=== PATIENT | female | born 1980 | race Two or more races ===

== ENCOUNTER 2021-01-25 08:27 | Outpatient (AMBR) | payer MEDICAID, SELFPAY ==
--- NOTE | 2021-01-25 09:45 | PTNOTE_ITS ---
PT OP Initial Eval Patient Information Visit Reasons: left knee pain Medical Diagnosis: M25.562 Treatment Dx #1: L knee pain Start of Care: 01/25/21 Date of Onset: 3 months ago Initial Assessment Subjective Pt is 40 yr old sami speaking female who reports L knee pain x3 months that was intense pain 9/10 prior to recent extraction of knee effusion. Pt is ambulating with FWW which she started using when the L knee started hurting and is ambulating limited distances limited by knee pain PMH: RA, DM, CVA with L ankle drop foot. Imaging: x-ray of L knee in EMR advanced OA tricompartmental Pt goal: to see if pain can decrease Objective L knee AROM: Flexion: 100 deg Extension: -5 deg Strength: 3+/5 quads and HS Gait: antalgic Squat: unable Assessment Pt presents with limited L knee ROM, strength and function with gait consistent with X-ray results that show advanced OA. After reviewing X-ray imaging there is bone on bone of the knee which may limit progress with therapy goals. Pt requires skilled therapy in order to trial TENs treatment and see if she can get any pain relief and she has poor/fair rehab potential. 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 Ind with HEP 2. Trial treatment of TENs to reduce pain 3. Pt will be able to ride the recumbent bike x5' Treatment Plan 1. Manual therapy 2. Therex 3. Modalities as indicated, moist heat, ice, estim Frequency and Duration 2x a week for 6 weeks Certification Dates: 01/25/21 to 04/26/21 Office Procedures PT Treatments PT Date of Service: 01/25/21 OP PT Eval Mod Complex 30 minutes: Yes
--- NOTE | 2021-06-28 10:02 | PT.ODS1RPT ---
PT OP Progress/Discharge Note Date of Service: 06/28/21 Progress Note/DC Note Progress Note/Discharge Note: DC Note Patient Information Visit Reasons: left knee pain Service Continue Service or Discharge: Discharge Discharge Date: 06/28/21 Status Assessment: Pt attended the initial evaluation and no showed first Rx visit and never returned or called to schedule a follow-up appointment within the past 30 days. Pt?s attendance is not consistent enough to make progress with goals. Pt will be D/C'd according to non-compliance with attendance policy. Plan: D/C Office Procedures PT Treatments PT Date of Service: 01/25/21 OP PT Eval Mod Complex 30 minutes: Yes
== END 2021-02-21 23:59 | disposition home or self-care (01) ==
PROVIDERS: PCP Physician Assistant; Referring Provider Physician Assistant; Visit Provider Nurse Practitioner Family
DX: M25.562 Pain in left knee (principal); I69.398 Other sequelae of cerebral infarction; E11.9 Type 2 diabetes mellitus without complications
CPT/HCPCS: 97162

== ENCOUNTER 2024-02-07 13:35 | Outpatient (AMB) | payer MEDICAID, SELFPAY ==
--- NOTE | 2024-02-07 14:55 | PD.ORTHCLVIS ---
Vital signs 02/07/24 14:57 Height 1.52 m Height Method Stated Weight 68.577 kg Weight Measurement Method Standing Scale BMI 29.7 BP 125/85 H Blood Pressure Source Automatic Cuff Blood Pressure Location Right Upper Arm Position Sitting Respiration 18 Pulse 79 Pulse Source Monitor Temp 95.8 F L Temp Source Temporal Artery Scan Pulse Oximetry (%) 98 Oxygen Delivery Method Room Air Med/Allergies Allergies & Medications Allergies No Known Allergies Allergy (Verified 02/07/24 14:57) Medication Reconciliation hydrocodone 5 mg-acetaminophen 325 mg tablet ([place]) 1 tab PO AC PRN Pain 05/08/19 [History Confirmed 02/07/24] acetaminophen 500 mg tablet 1,000 mg PO TID pain 11/01/23 [History Confirmed 02/07/24] acetaminophen 500 mg tablet (Acetaminophen Extra Strength) 1,000 mg (2 x 500 mg) PO Q6H PRN pain #90 tabs 11/06/23 [Rx Confirmed 02/07/24] aspirin 81 mg tablet,delayed release 81 mg PO BID #60 tabs 11/06/23 [Rx Confirmed 02/07/24] doxycycline hyclate 100 mg tablet 100 mg PO BID #14 tabs 11/06/23 [Rx Confirmed 02/07/24] gabapentin 300 mg capsule 300 mg PO .qhs #30 caps 11/06/23 [Rx Confirmed 02/07/24] oxycodone 5 mg tablet 5 mg PO Q6H PRN pain #28 tabs 11/06/23 [Rx Confirmed 02/07/24] sennosides 8.6 mg-docusate sodium 50 mg tablet (Senna-S) 1 tab-cap PO QDAY #30 tabs 11/06/23 [Rx Confirmed 02/07/24] Subjective Visit Visit for: follow up visit Immunization / Flu Flu Vaccine in the Last 12 Months: No Flu Vaccine Exclusion Criteria: No Exclusion Criteria History of Present Illness Chief complaint: POST OP Date of injury / onset of symptoms: 11/06/23 Date of 1st surgery (if applicable): 11/06/23 Patient is 12 weeks out from surgery and is doing wonderfully. She is very happy with her knee. Personal History Occupation: UNEMPLOYED Pain Pain level (0-10): 3 Pain duration: COMES 7 GOES Pain location: inside (medial) and anterior Pain quality: dull and aching Pain timing: increases with activity Associated signs & symptoms: none Ambulatory data Ambulatory device: walker Treatments Improvement with previous injections: No Improvement with PT: No Improvement with NSAIDS: n/a Review of Systems Review of Systems: All systems negative unless otherwise noted in HPI. Exam Exam Patient is in no acute distress and is cooperative with the examination today. Patient has a normal mood and affect. Breathing is nonlabored. In no respiratory distress. Bilateral extremities were evaluated and demonstrates sensation intact to light touch. Palpable pedal pulses are present. No significant edema is present. Left knee incision is clean dry intact. There is no drainage. We removed the remaining sutures. Range of motion is 0 to 100 degrees. Knee feels stable to varus and valgus stress as well as AP translation Assessment and Plan Problem List (1) Status post total left knee replacement: Status: Acute Plan: Patient is doing well after complex primary total knee replacement for rheumatoid arthritis. She is doing very well after surgery. She would like to get her right knee replacement done at some point. She would like to continue to recover before she would do this. We would need to figure out the timing of her medication again. This would be a very complex total knee replacement just like the last 1. We would need a CT scan given the amount of bony deformity. (2) Rheumatoid arthritis involving both knees: Status: Acute Office Procedures GNS Level of Care Nursing/Assessment Patient Status: Established Patient Nursing Assessment/Reassesment: Medication Reconciliation, Update PMH in EMR and Vital Signs Coordination of Care: Complex Care and Chronic Disease 1-5, Education Complex Pt/Fam, Consent,records obtained, informed consent, 1 Ins Authorization, Results/Orders obtained and Staff clarify orders Special Needs: Language special needs Established Patient Charge Established Patient Point Assignment: 110 Established Patient Point Charge: EP Level 3 (80-115) Past Medical History Past Medical History Have you ever been diagnosed with any of the following: Neurological Problems Cerebrovascular Accident (CVA): Yes (5 YEARS AGO) Seizures: No Cardiology Problems Congestive Heart Failure: No Respiratory Problems Chronic Obstructive Pulmonary Disease (COPD): No Asthma: No Tuberculosis: Yes (POSITIVE TB TEST CHILD- TREATMENT COMPLETED) Smoking: No Smoking Exposure: No Stomache/Intestinal Problems Hepatitis: No Genital/Urinary Problems Renal Disease: No Reproductive Problems Previous Pregnancies: Yes (X4) Musculoskeletal Problems Rheumatoid Arthritis: Yes (TAKES PREDNISONE) Endocrine Problems Diabetes Mellitus Type 1: No Diabetes Mellitus Type 2: Yes (CONTROLLED WITH DIET. NO MEDS) Blood Problems Sickle Cell Disease: No Other Problems Falls: No Blood Transfusions: No Blood Transfusion Reaction: No Anesthesia Reactions: No MRSA: No Chicken Pox: No (UNKNOWN) Cancer: No Surgical History Total Knee Replacement: Yes
[2024-02-07 14:57] VITALS: BP 125/85; PULSE 79; RESP 18; TEMP 35.4; O2SAT 98; BMI 29.7
== END 2024-02-07 15:02 | disposition home or self-care (01) ==
LOC: HODSRG 13:35
PROVIDERS: PCP Physician Assistant; Referring Provider Physician Assistant; Supervising Provider Orthopaedic Surgery Adult Reconstructive Orthopaedic Surgery; Visit Provider Orthopaedic Surgery Adult Reconstructive Orthopaedic Surgery
DX: Z96.652 Presence of left artificial knee joint (principal); M06.862 Other specified rheumatoid arthritis, left knee; M06.861 Other specified rheumatoid arthritis, right knee; Z86.73 Personal history of transient ischemic attack (TIA), and cerebral infarction without residual deficits
CPT/HCPCS: 99213; G0463

== ENCOUNTER 2024-04-10 13:28 | Outpatient (AMB) | payer MEDICAID, SELFPAY ==
--- NOTE | 2024-04-10 13:56 | ORTHONT_ITS ---
Vital signs 04/10/24 13:57 Height 1.52 m Height Method Stated Weight 69.144 kg Weight Measurement Method Standing Scale BMI 29.9 BP 114/77 Blood Pressure Source Automatic Cuff Blood Pressure Location Left Upper Arm Position Sitting Respiration 18 Pulse 75 Pulse Source Monitor Temp 96.9 F Temp Source Temporal Artery Scan Pulse Oximetry (%) 95 Oxygen Delivery Method Room Air Med/Allergies Allergies & Medications Allergies No Known Allergies Allergy (Verified 04/10/24 13:57) Exam Exam Patient is in no acute distress and is cooperative with the examination today. Patient has a normal mood and affect. Breathing is nonlabored. In no respiratory distress. Bilateral extremities were evaluated and demonstrates sensation intact to light touch. Palpable pedal pulses are present. No significant edema is present. Left knee incision is clean dry intact. There is no drainage. We removed the remaining sutures. Range of motion is 0 to 100 degrees. Knee feels stable to varus and valgus stress as well as AP translation Assessment and Plan Problem List (1) Status post total left knee replacement: Status: Acute Plan: Patient is doing well after complex primary total knee replacement for rheumatoid arthritis. She is doing very well after surgery. She would like to get her right knee replacement done at some point. She would like to continue to recover before she would do this. We would need to figure out the timing of her medication again. This would be a very complex total knee replacement just like the last one. We would need a CT scan given the amount of bony deformity. The nature and purpose of the total knee replacement, alternative method(s) of treatment, the material risks involved, and the possibility of complications were fully explained to the patient. The patient does NOT have any of the following contraindications to TKA: - Active infection of the knee joint, OR - Active systemic bacteremia, OR - Active skin infection or open wound at surgical site, OR - Neuropathic arthritis, OR - Severe, rapidly progressive neurological disease, OR - Severe medical condition that makes risks of surgery outweigh the potential benefit The patient was told the most common risks and complications associated with a total knee replacement include, but are not limited to: blood clots in the leg, fatal pulmonary embolism, dislocation of the prosthesis, intraoperative and postoperative fractures of the femur or tibia, infection, failure of the prosthesis or grafting materials, complications from anesthesia, reactions to blood transfusions, postoperative leg length inequality, instability of the knee replacement, nerve damage or injury, vascular injury, delayed wound healing, infection, other injury or even . In addition, there are risks associated with anesthesia given during this operation. Also, the patient was told that after undergoing a total knee replacement there may still be persistent pain or disability. The patient was informed that the success of this operation in part depends upon the mechanical devices which are going to be implanted and that these devices can fail or malfunction, and may need to be repaired or replaced and there are no guarantees as to the longevity of this device or its parts and that it or its parts could fail prematurely. The patient was also notified that during the course of surgery, there may be a need to use bone graft from donors, and that any bone graft used will be carefully screened for communicable diseases, including AIDS, hepatitis, Eugenio-Creutzfeldt, or other diseases, but despite the screening procedures, there is a small chance that they could contract one of these diseases. Finally, the patient was asked to follow completely and fully with all advice and recommended treatments, and that recovery and ultimate outcome are affected by their compliance with recommended treatment. We discussed the risks, benefits and treatment alternatives, and the patient is interested in proceeding with surgery. We will try to set this up as expeditiously as possible. (2) Rheumatoid arthritis involving both knees: Status: Acute Office Procedures GNS Level of Care Nursing/Assessment Patient Status: Established Patient Nursing Assessment/Reassesment: Medication Reconciliation, Update PMH in EMR and Vital Signs Coordination of Care: Complex Care and Chronic Disease 1-5, Education Complex Pt/Fam, Consent,records obtained, informed consent, Results/Orders obtained and Staff clarify orders Established Patient Charge Established Patient Point Assignment: 95 Established Patient Point Charge: EP Level 3 (80-115) MA Intake Visit Data Collection New Patient or Established: Established Patient (seen at [facility] [place] 3 [place]) Reason for Visit:: LEFT KNEE PAIN WORSENING Seen by Clinical Staff ONLY (RN/MA): No Showroom Executive Director Required: Yes PCP or OBGYN visit in last 3 months: Yes Hx Now: No Do You Feel Safe at Home: Yes Authorities Contacted: N/A Questionairres Past Medical History Past Medical History Have you ever been diagnosed with any of the following: Neurological Problems Cerebrovascular Accident (CVA): Yes (5 YEARS AGO) Seizures: No Cardiology Problems Congestive Heart Failure: No Respiratory Problems Chronic Obstructive Pulmonary Disease (COPD): No Asthma: No Tuberculosis: Yes (POSITIVE TB TEST CHILD- TREATMENT COMPLETED) Smoking: No Smoking Exposure: No Stomache/Intestinal Problems Hepatitis: No Genital/Urinary Problems Renal Disease: No Reproductive Problems Previous Pregnancies: Yes (X4) Musculoskeletal Problems Rheumatoid Arthritis: Yes (TAKES PREDNISONE) Endocrine Problems Diabetes Mellitus Type 1: No Diabetes Mellitus Type 2: Yes (CONTROLLED WITH DIET. NO MEDS) Blood Problems Sickle Cell Disease: No Other Problems Falls: No Blood Transfusions: No Blood Transfusion Reaction: No Anesthesia Reactions: No MRSA: No Chicken Pox: No (UNKNOWN) Cancer: No Surgical History Total Knee Replacement: Yes Subjective Visit Visit for: follow up visit and knee Immunization / Flu Flu Vaccine in the Last 12 Months: No Flu Vaccine Exclusion Criteria: No Exclusion Criteria History of Present Illness Chief complaint: right knee pain atient is doing well after complex primary total knee replacement for rheumatoid arthritis. She is doing very well after surgery. She would like to get her right knee replacement done at some point. She would like to continue to recover before she would do this. We would need to figure out the timing of her medication again. This would be a very complex total knee replacement just like the last one. We would need a CT scan given the amount of bony deformity. Pain Pain level (0-10): 8 Pain duration: CONSTANT Pain location: inside (medial) and outside (lateral) Pain quality: sharp Pain timing: night Associated signs & symptoms: none Ambulatory data Ambulatory device: none Treatments Improvement with previous injections: No Improvement with PT: No Improvement with NSAIDS: no Review of Systems Review of Systems: All systems negative unless otherwise noted in HPI.
[2024-04-10 13:57] VITALS: BP 114/77; PULSE 75; RESP 18; TEMP 36.1; O2SAT 95; BMI 29.9
== END 2024-04-10 14:23 | disposition home or self-care (01) ==
LOC: HODSRG 13:28
PROVIDERS: PCP Physician Assistant; Referring Provider Physician Assistant; Supervising Provider Orthopaedic Surgery Adult Reconstructive Orthopaedic Surgery; Visit Provider Orthopaedic Surgery Adult Reconstructive Orthopaedic Surgery
DX: Z96.652 Presence of left artificial knee joint (principal); M06.862 Other specified rheumatoid arthritis, left knee; M06.861 Other specified rheumatoid arthritis, right knee; Z86.73 Personal history of transient ischemic attack (TIA), and cerebral infarction without residual deficits
CPT/HCPCS: 99213; G0463

== ENCOUNTER → 2024-05-06 | Outpatient (CLI) | payer MEDICAID, SELFPAY ==
--- NOTE | 2024-05-06 | XR_ITS ---
Examination: CT right lower extremity, without contrast. 2-D sagittal reconstructions. 2-D coronal reconstructions. 3-D reconstructions. Date and time of exam:May 06, 2024 1246 hours INDICATIONS: Diagnosis right knee osteoarthritis, right knee pain one year decreased mobility CTDI: vol (mGy):25.82 DLP: (mGycm):755 Technique: Multiple 1.25 mm axial sections of the right lower extremity without intravenous contrast have been obtained. 2-D sagittal and coronal reconstructions have been obtained. 3-D reconstructions have been obtained. Low dose protocols were performed. One or more of the following dose reduction techniques were used; automated exposure control, adjustment of the mA and/or KV according to patient size, use of iterative reconstruction technique. Findings: Moderate osteopenia Moderate narrowing right hip joint No hip fracture or hip dislocation Advanced right knee tricompartment osteoarthritis No fracture Soft tissue vascular calcification IMPRESSION: Advanced right knee tricompartment osteoarthritis
[2024-05-06 12:11] LABS: HCG Qualitative,Urine Negative
== END | disposition home or self-care (01) ==
PROVIDERS: PCP Orthopaedic Surgery Adult Reconstructive Orthopaedic Surgery; Referring Provider Orthopaedic Surgery Adult Reconstructive Orthopaedic Surgery; Visit Provider Orthopaedic Surgery Adult Reconstructive Orthopaedic Surgery
DX: M17.11 Unilateral primary osteoarthritis, right knee (principal); Z32.00 Encounter for pregnancy test, result unknown
CPT/HCPCS: 73700; 81025

== ENCOUNTER → 2024-05-12 | Outpatient (CLI) | payer MEDICAID, SELFPAY ==
[2024-05-12 09:15] VITALS: BMI 28.4
--- NOTE | 2024-05-12 09:32 | EKG_ITS ---
[facility] Test Date: 2024-05-12 Pat Name: VELIA BLOUNT Department: Room: - Gender: Female Certified Nurses' Aide: JCarlo : 1980 Requested By: Jeferson Gregory Order Number: [id number] Reading MD: Jeferosn Gregory Measurements Intervals [place] Rate: 67 P: 34 CT: 155 QRS: 6 QRSD: 87 T: 7 QT: 388 QTc: 410 Interpretive Statements SINUS RHYTHM LOW QRS VOLTAGE IN PRECORDIAL LEADS MINIMAL VOLTAGE CRITERIA FOR LVH, CONSIDER NORMAL VARIANT POSSIBLE ANTERIOR MYOCARDIAL INFARCTION , OF INDETERMINATE AGE Compared to ECG 11/01/2023 09:55:42 Low QRS voltage now present Myocardial infarct finding now present /store/S0/[id number]/ecg/[id number].pdf
[2024-05-12 10:31] LABS: Basophils % (Auto) 0 % (0-2.5); Eosinophils # (Auto) 0.3 Thou/mm3 (0.0-0.5); Eosinophils % (Auto) 7 % (0-10); Hematocrit 40.6 % (36.0-46.0); Hemoglobin 12.5 g/dL (12.0-16.0); Immature Granulocytes % (Auto) 0 % (0-0); Immature Granulocytes Auto 0.01 Thou/mm3 (0.00-0.00); Lymphocytes # (Auto) 1.9 Thou/mm3 (1.0-4.8); Lymphocytes % (Auto) 38 % (10-50); Mean Corpuscular HGB Conc 30.8 g/dl (31.0-37.0); Mean Corpuscular Hemoglobin 25.6 pg (25.0-35.0); Mean Corpuscular Volume 83 fL (80-100); Monocytes # (Auto) 0.8 Thou/mm3 (0.0-0.8); Monocytes % (Auto) 15 % (0-12); Neutrophils % (Auto) 40 % (37-80); Nucleated Red Blood Cell % 0 /100 WBC (0); Platelet Count 211 Thou/mm3 (140-440); RDW Standard Deviation 51.2 fL (36.4-46.3); Red Blood Count 4.88 Miln/mm3 (4.00-5.20); White Blood Count 5.1 Thou/mm3 (3.6-11.0)
[2024-05-12 10:32] LABS: HCG,Qualitative Serum Negative
[2024-05-12 10:36] LABS: Alanine Aminotransferase 16 U/L (10-49); Albumin, Serum 4.3 gm/dL (3.5-5.0); Albumin/Globulin Ratio 1.4 (1.2-2.2); Alkaline Phosphatase 55 U/L (46-116); Anion Gap 9 (7-16); Aspartate Amino Transferase 20 U/L (0-34); BUN/Creatinine Ratio 14 Ratio (12-20); Bilirubin,Total 0.6 mg/dL (0.3-1.2); Blood Urea Nitrogen 11 mg/dL (9-23); Calcium 9.4 mg/dL (8.3-10.6); Calcium (Corrected) 9.4 mg/dL (8.5-10.1); Carbon Dioxide 24.2 mMol/L (20.0-31.0); Chloride 106 mMol/L (98-107); Creatinine (Component) 0.8 mg/dL (0.6-1.3); Estimated Creatinine Clearance 79.3 mL/min (>60); Glucose 87 mg/dL (74-106); Osmolality,Calculated 275 (275-295); Potassium 4.2 mMol/L (3.4-5.1); Sodium 139 mMol/L (136-145); Total Protein 7.3 gm/dL (5.7-8.2); eGFR > 60 See Note
[2024-05-12 10:38] LABS: INR 1.2 (0.9-1.3); Partial Thromboplastin Time 25.6 Seconds (22.0-36.0)
== END | disposition home or self-care (01) ==
LOC: SLAB 06-04 08:44
PROVIDERS: Anesthesiology; PCP Physician Assistant; Referring Provider Orthopaedic Surgery Adult Reconstructive Orthopaedic Surgery; Visit Provider Orthopaedic Surgery Adult Reconstructive Orthopaedic Surgery
DX: Z01.812 Encounter for preprocedural laboratory examination (principal); M06.9 Rheumatoid arthritis, unspecified
CPT/HCPCS: 36415; 80048; 80053; 84703; 85025; 85610; 85730; 93005; J7120; J7999

== ENCOUNTER 2024-05-22 13:24 | Outpatient (AMB) | payer MEDICAID, SELFPAY ==
--- NOTE | 2024-05-22 13:31 | PD.ORTHCLVIS ---
Vital signs 05/22/24 13:32 Height 1.52 m Height Method Stated Weight 67.755 kg Weight Measurement Method Standing Scale BMI 29.3 BP 110/76 Blood Pressure Source Automatic Cuff Blood Pressure Location Left Upper Arm Position Sitting Respiration 18 Pulse 80 Pulse Source Monitor Temp 96.4 F L Temp Source Temporal Artery Scan Pulse Oximetry (%) 98 Oxygen Delivery Method Room Air Med/Allergies Allergies & Medications Allergies No Known Allergies Allergy (Verified 05/22/24 13:32) Medication Reconciliation hydrocodone 5 mg-acetaminophen 325 mg tablet ([place]) 1 tab PO AC PRN Pain 05/08/19 [History Confirmed 05/22/24] acetaminophen 500 mg tablet 1,000 mg PO TID pain 11/01/23 [History Confirmed 05/22/24] Exam Exam Patient is in no acute distress and is cooperative with the examination today. Patient has a normal mood and affect. Breathing is nonlabored. In no respiratory distress. Bilateral extremities were evaluated and demonstrates sensation intact to light touch. Palpable pedal pulses are present. No significant edema is present. Left knee incision is clean dry intact. There is no drainage. We removed the remaining sutures. Range of motion is 0 to 100 degrees. Knee feels stable to varus and valgus stress as well as AP translation Assessment and Plan Problem List (1) Status post total left knee replacement: Status: Acute Plan: Patient is doing well after complex primary total knee replacement for rheumatoid arthritis. She is doing very well after surgery. She would like to get her right knee replacement donet. She would like to continue to recover before she would do this. We would need to figure out the timing of her medication again. This would be a very complex total knee replacement just like the last one. We again discussed that there is a high risk for infection. Will hold immunomodulators for 2 weeks before surgery The nature and purpose of the total knee replacement, alternative method(s) of treatment, the material risks involved, and the possibility of complications were fully explained to the patient. The patient does NOT have any of the following contraindications to TKA: - Active infection of the knee joint, OR - Active systemic bacteremia, OR - Active skin infection or open wound at surgical site, OR - Neuropathic arthritis, OR - Severe, rapidly progressive neurological disease, OR - Severe medical condition that makes risks of surgery outweigh the potential benefit The patient was told the most common risks and complications associated with a total knee replacement include, but are not limited to: blood clots in the leg, fatal pulmonary embolism, dislocation of the prosthesis, intraoperative and postoperative fractures of the femur or tibia, infection, failure of the prosthesis or grafting materials, complications from anesthesia, reactions to blood transfusions, postoperative leg length inequality, instability of the knee replacement, nerve damage or injury, vascular injury, delayed wound healing, infection, other injury or even . In addition, there are risks associated with anesthesia given during this operation. Also, the patient was told that after undergoing a total knee replacement there may still be persistent pain or disability. The patient was informed that the success of this operation in part depends upon the mechanical devices which are going to be implanted and that these devices can fail or malfunction, and may need to be repaired or replaced and there are no guarantees as to the longevity of this device or its parts and that it or its parts could fail prematurely. The patient was also notified that during the course of surgery, there may be a need to use bone graft from donors, and that any bone graft used will be carefully screened for communicable diseases, including AIDS, hepatitis, Eugenio-Creutzfeldt, or other diseases, but despite the screening procedures, there is a small chance that they could contract one of these diseases. Finally, the patient was asked to follow completely and fully with all advice and recommended treatments, and that recovery and ultimate outcome are affected by their compliance with recommended treatment. We discussed the risks, benefits and treatment alternatives, and the patient is interested in proceeding with surgery. We will try to set this up as expeditiously as possible. (2) Rheumatoid arthritis involving both knees: Status: Acute Office Procedures GNS Level of Care Nursing/Assessment Patient Status: Established Patient Nursing Assessment/Reassesment: Medication Reconciliation, Update PMH in EMR and Vital Signs Coordination of Care: Complex Care and Chronic Disease 1-5, Education Complex Pt/Fam, Consent,records obtained, informed consent, Results/Orders obtained and Staff clarify orders Special Needs: Language special needs Established Patient Charge Established Patient Point Assignment: 95 Established Patient Point Charge: EP Level 3 (80-115) MA Intake Visit Data Collection New Patient or Established: Established Patient (seen at [facility] within 3 years) Reason for Visit:: FOLLOW UP Seen by Clinical Staff ONLY (RN/MA): No Packaging Sales Representative Required: Yes PCP or OBGYN visit in last 3 months: Yes Hx Now: No Do You Feel Safe at Home: Yes Authorities Contacted: N/A Questionairres Past Medical History Past Medical History Have you ever been diagnosed with any of the following: Neurological Problems Cerebrovascular Accident (CVA): Yes (5 YEARS AGO) Transient Ischemic Attacks (TIA): Yes (5 yrs ago) Seizures: No Cardiology Problems Congestive Heart Failure: No Respiratory Problems Chronic Obstructive Pulmonary Disease (COPD): No Asthma: No Tuberculosis: Yes (POSITIVE TB TEST CHILD- TREATMENT COMPLETED) Smoking: No Smoking Exposure: No Stomache/Intestinal Problems Hepatitis: No Genital/Urinary Problems Renal Disease: No Reproductive Problems Previous Pregnancies: Yes (X4) Musculoskeletal Problems Rheumatoid Arthritis: Yes (TAKES PREDNISONE) Endocrine Problems Diabetes Mellitus Type 1: No Diabetes Mellitus Type 2: Yes (CONTROLLED WITH DIET. NO MEDS) Blood Problems Sickle Cell Disease: No Other Problems Hospitalization: Yes (TIA) Shingles: Yes Falls: No Blood Transfusions: No Blood Transfusion Reaction: No Anesthesia Reactions: No MRSA: No Chicken Pox: No (UNKNOWN) Measles: Yes Cancer: No Surgical History Total Knee Replacement: Yes Subjective Visit Visit for: follow up visit and knee Immunization / Flu Flu Vaccine in the Last 12 Months: No Flu Vaccine Exclusion Criteria: No Exclusion Criteria History of Present Illness Chief complaint: right knee pain atient is doing well after complex primary total knee replacement for rheumatoid arthritis. She is doing very well after surgery. She would like to get her right knee replacement done at some point. She would like to continue to recover before she would do this. We would need to figure out the timing of her medication again. She was scheduled for surgery 2 weeks ago but had to be canceled because the robot was down. We will get the surgery set up again Pain Pain level (0-10): 5 Pain duration: CONSTANT Pain location: inside (medial), outside (lateral) and anterior Pain quality: sharp and dull Pain timing: night Associated signs & symptoms: none Ambulatory data Ambulatory device: cane and none Treatments Improvement with previous injections: No Improvement with PT: No Improvement with NSAIDS: no Review of Systems Review of Systems: All systems negative unless otherwise noted in HPI.
[2024-05-22 13:32] VITALS: BP 110/76; PULSE 80; RESP 18; TEMP 35.8; O2SAT 98; BMI 29.3
== END 2024-05-22 13:51 | disposition home or self-care (01) ==
LOC: HODSRG 13:24
PROVIDERS: PCP Physician Assistant; Referring Provider Physician Assistant; Supervising Provider Orthopaedic Surgery Adult Reconstructive Orthopaedic Surgery; Visit Provider Orthopaedic Surgery Adult Reconstructive Orthopaedic Surgery
DX: Z47.1 Aftercare following joint replacement surgery (principal); Z96.652 Presence of left artificial knee joint
CPT/HCPCS: 99213; G0463

== ENCOUNTER 2024-06-03 15:41 | Observation (INO) | payer MEDICAID, SELFPAY ==
[2024-05-29 10:17] VITALS: BMI 28.1
[2024-05-29 12:36] LABS: Basophils % (Auto) 1 % (0-2.5); Eosinophils # (Auto) 0.1 Thou/mm3 (0.0-0.5); Eosinophils % (Auto) 1 % (0-10); Hematocrit 40.4 % (36.0-46.0); Hemoglobin 12.5 g/dL (12.0-16.0); Immature Granulocytes % (Auto) 0 % (0-0); Immature Granulocytes Auto 0.02 Thou/mm3 (0.00-0.00); Lymphocytes # (Auto) 1.4 Thou/mm3 (1.0-4.8); Lymphocytes % (Auto) 18 % (10-50); Mean Corpuscular HGB Conc 30.9 g/dl (31.0-37.0); Mean Corpuscular Volume 84 fL (80-100); Monocytes # (Auto) 0.7 Thou/mm3 (0.0-0.8); Monocytes % (Auto) 9 % (0-12); Neutrophils # (Auto) 5.4 Thou/mm3 (1.8-7.7); Neutrophils % (Auto) 71 % (37-80); Nucleated Red Blood Cell % 0 /100 WBC (0); RDW Standard Deviation 50.5 fL (36.4-46.3); White Blood Count 7.5 Thou/mm3 (3.6-11.0)
[2024-05-29 12:40] LABS: HCG,Qualitative Serum Negative; Partial Thromboplastin Time 23.6 Seconds (22.0-36.0); Prothrombin Time 11.4 Seconds (9.0-12.2)
[2024-05-29 12:55] LABS: Alanine Aminotransferase 10 U/L (10-49); Albumin, Serum 4.4 gm/dL (3.5-5.0); Albumin/Globulin Ratio 1.3 (1.2-2.2); Alkaline Phosphatase 61 U/L (46-116); Anion Gap 9 (7-16); Aspartate Amino Transferase 17 U/L (0-34); BUN/Creatinine Ratio 15 Ratio (12-20); Bilirubin,Total 0.4 mg/dL (0.3-1.2); Blood Urea Nitrogen 12 mg/dL (9-23); Calcium 9.1 mg/dL (8.3-10.6); Calcium (Corrected) 9.1 mg/dL (8.5-10.1); Carbon Dioxide 21.2 mMol/L (20.0-31.0); Chloride 108 mMol/L (98-107); Creatinine (Component) 0.8 mg/dL (0.6-1.3); Globulin 3.4 gm/dL (2.3-3.5); Glucose 81 mg/dL (74-106); Osmolality,Calculated 274 (275-295); Potassium 4.1 mMol/L (3.4-5.1); Sodium 138 mMol/L (136-145); Total Protein 7.8 gm/dL (5.7-8.2); eGFR > 60 See Note
[2024-05-29 13:14] LABS: Platelet Count 227 Thou/mm3 (140-440)
[2024-06-03] VITALS (11 sets, daily range): BP systolic 112–137; BP diastolic 72–94; PULSE 62–87; RESP 12–98; TEMP 36.1–36.7; O2SAT 95–100; BMI 27.2; BMI 33.5
[2024-06-03] MEDS: MELOXICAM 7.5 MG TABLET PO ×2 (09:21→21:31)
[2024-06-03] MEDS: ACETAMINOPHEN 325 MG TABLET 650 MG PO (09:21)
[2024-06-03] MEDS: PREGABALIN 75 MG CAPSULE PO (09:21)
[2024-06-03] MEDS: RINGERS LACTATED 1000 ML 1,000 ML 20 ML IV (09:24)
--- NOTE | 2024-06-03 10:05 | ESOP_ITS ---
Date of Procedure 06/03/24 Pre Op Diagnosis right knee rheumatoid arthritis Post Op Diagnosis right knee rheumatoid arthritis Procedure right total knee replacement leroy Findings full thickness cartilage loss and osteophytes Procedure Description Indication: The patient is a 43 year old who has a long history of right knee pain. X-rays show degenerative arthritis involving the knee. Over the past several years the patient has had increasing pain, progressive limitation in function. He has failed conservative measures including activity modification, physical therapy, injections, anti-inflammatories, and assistive devices. After a lengthy discussion of the risks and benefits, the patient presents now for total knee replacement. Preoperatively she was noted to have 10 degrees of hyperextension. We also discussed that she is at high risk for wound complications given her RA history and the prior issues with wound healing. In addition, we discussed peroneal nerve issue as a complication. The nature and purpose of the total knee replacement, alternative method(s) of treatment, the material risks involved, and the possibility of complications were fully explained to the patient. The patient was told the most common risks and complications associated with a total knee replacement include, but are not limited to blood clots in the leg, fatal pulmonary embolism, dislocation of the prosthesis, intraoperative and postoperative fractures of the femur or tibia, infection, failure of the prosthesis or grafting materials, complications from anesthesia, reactions to blood transfusions, postoperative leg length inequality, instability of the knee replacement, nerve damage or injury, vascular injury, delayed wound healing, inf ections, other injury or even . In addition, there are risks associated with anesthesia given during this operation, temporary or permanent numbness on the skin lateral to the incision can be a complication unique to total knee surgery, and kneeling can be painful after knee replacement surgery. Also, the patient was told that after undergoing a total knee replacement there may still be pain or disability. We discussed with the patient that we will be using a robot-assisted technology. We discussed that there is a possibility of converting to manual instrumentation. The patient was informed that the success of this operation in part depends upon the mechanical devices which are going to be implanted and that these devices can fail or malfunction, and may need to be repaired or replaced and there are no guarantees as to the longevity of this device or its part and that it or its parts could fail prematurely. Finally, the patient was asked to follow completely and fully with all advice and recommended treatments, and that recovery and ultimate outcome are affected by their compliance with recommended treatment. Surgical technique: Patient was marked and consented in the pre-operative area. The patient was brought to the operating room and placed on the operating table in a supine position. Prior to positioning, a timeout procedure was performed between the surgeon, the anesthesiologist, and the nursing staff where the patient and the operative side were identified and confirmed. After adequate general anesthetic was obtained, the right lower extremity was prepped and draped in the usual sterile fashion. A weight based dose of Cefazolin were administered within 1 hour prior to incision. The robot was preregistered and calirated before the incision. The extremity was exsanguinated with an esmarch badge and tourniquet inflated to 250mmHg. A midline incision was made. A median parapatellar arthrotomy was made. The patella was subluxed laterally. A medial release was performed to expose the medial tibia. His femoral and tibial pins were placed through an intra incisional manner for both cases. Every effort was made to ensure that the distalmost aspect of the pin was hung in the second cortex. The arrays were then tightened several times to ensure that it was fixed for the remainder of the case. Both femoral and tibial checkpoints were then placed. We then went through the registration process of the bone. We then assessed the knee deformity and attempted to correct it. We also used the robot to aid in judging laxity in both extension and flexion. Final based on laxity and alignment we changed the preoperative assessment to obtain proper proper implant positioning and to correct deformity. Attention was then placed to the tibia. We made a tibial cut using the robot ensuring that both the MCL and the patella tendon were protected with retractors. We then went to the femur and made the posterior cut followed by the anterior cut and the anterior chamfer. The bone was then removed and we made a distal femur cut and a posterior chamfer cut. We verified all cuts. A trial reduction was performed with a size 3 femoral component and a size 3 keeled tibial component. The patella was cut and sized to a 33. The patella tracked centrally, and no lateral retinacular release was necessary. The trial implants were removed. The arrays, pins, and checkpoints were all removed. We performed a verification that all pins were removed. The cut bone surfaces were lavaged. A size 3 right femoral component, a size 3 keeled tibial component were impacted into position using 2 bags of palacos. A trial insert was placed and a size 33 patella were impacted into position. The knee was placed in extension until the cement hardened. The knee was felt to be well balanced in the sagittal and coronal plane after upsizing the poly to a 19 PS poly as she was initially loose in both flexion and extension. The final 3x19 posterior-substituting articular insert was impacted into the tibial tray. The knee was brought out to full extension, flexed up to 120 degrees. It was stable to varus and valgus stress and appropriately balanced in flexion and extension. The wounds were copiously irrigated following deflation of tourniquet. The medial retinaculum was reapproximated with #1 vicryl and quill. The subcutaneous tissues were closed with 0 and 2-0 interrupted Vicryl. The skin was closed with 3-0 Monofilament V loc suture. A sterile dressing was applied. The patient was transferred to a bed and brought to recovery in stable condition. The patient tolerated the procedure well. There were no intraoperative complications. Sponge and needle counts were correct times 2. As the attending surgeon, I attest I was present and performed the entire operation. Grafts/Implants Size 3 PS Femur Size 3 Tibia 19mm poly PS 33mm patella 2 bags of palacos Anesthesia GETA Implants anna PS Pathology / specimen None Pathology comment: none Estimated Blood Loss 150 Disposition floor Surgeon He Wright MD Surgical Staff Operation Date: 06/03/24 11:15 <No data on this case meets the specified criteria>
--- NOTE | 2024-06-03 10:07 | PD.ORTHPN ---
Subjective Subjective Brief History: r knee ra Narrative: Patient is a 43yo female with right knee rheumatoid arthritis of significant severity. She has been off biologics and is anxious to get surgery. Her prior TKA was cancelled due to a malfunction of the robot prior to surgery Exam Vital Signs Pulse 74 06/03/24 08:50 Objective - Ortho Labs 05/29/24 10:48 05/29/24 10:48 Assessment & Plan Diagnosis (1) Status post total left knee replacement: Status: Acute (2) Rheumatoid arthritis involving both knees: Status: Acute Assessment Additional comments: For her right knee skin, there is an area at the level of the tibial tubercle to the midshaft tibia where there was delayed wound healing prior. She reports this occured over 5 years ago and has been well healed. We discussed with her that she is at high risk of wound complications and infection given the prior scar and thin skin. We again discussed that this is a high risk surgery given her severe RA and the fact that she is on biologics for her RA. She understands and would like to proceed with TKA given that her quality of life is so poor
--- NOTE | 2024-06-03 13:44 | SUR.PHASEI ---
Addendum entered by Alysa Isaacs RN 06/03/24 16:01: pt has h/o rheumatoid arthritis Addendum entered by Alysa Isaacs RN 06/03/24 16:00: contractures to bilat hands noted. bilat foot drop noted. Original Note: received pt and report from SARIKA Hoffmann and RHYS Ferrell. Pt awake, slightly emotional at this time. Pt states 5/10 pain to surgical site. positive bilat pedal pulses. rt leg in an immobilizer. prevena present, no drainage noted. IV to left FA intact, no s/s of infiltration or redness note. vss. continuous monitoring.
--- NOTE | 2024-06-03 13:51 | XR_ITS ---
Examination: Abdomen 2 views Date and compared to previous Exam date and time: 2024 1524 hrs. Indications: Postoperative replacement Findings: Hemiarthroplasty. Satisfactory alignment Prominent osteopenia Impression: Total right knee arthroplasty with satisfactory alignment
--- NOTE | 2024-06-03 14:10 | SUR.PHASEI ---
photo optics technician at bedside. pt c/o 08/01 pain. no pain med ordered. spoke to Dr. Choi, orders received by Dr. Choi for pain med.
[2024-06-03] MEDS: HYDROmorphone INJ 2 MG/ML VIAL (14:18)
--- NOTE | 2024-06-03 14:45 | SUR.PHASEI ---
daughter at bedside, pt slightly emotional. VSS, no drainage noted to prevena. positive bilat pedal pulses palpated. continuous monitoring
[2024-06-03] MEDS: HYDROmorphone INJ 2 MG/ML VIAL 0.4 MG IV (15:07)
--- NOTE | 2024-06-03 15:21 | SUR.PHASEI ---
Pt is asleep at this time, no distress noted. vss, dressing remains cdi, pedal pulses present
--- NOTE | 2024-06-03 15:30 | SUR.PHASEI ---
pt recovering well, pt ready for transfer. report given to SARIKA Bob. Dressing remains cdi, IV intact no s/s of infiltration or redness.
[2024-06-03] MEDS: oxyCODONE HCL 5 MG IR TAB 10 MG PO ×2 (16:34→22:44)
[2024-06-03] MEDS: ACETAMINOPHEN 500 MG TABLET 1000 MG PO (17:24)
[2024-06-03] MEDS: ASPIRIN EC 81 MG TABEC PO (21:32)
[2024-06-03] MEDS: ceFAZolin 2 GM in SODIUM CHLORIDE 0.9% 100 ML IV (22:06)
[2024-06-04] VITALS (8 sets, daily range): BP systolic 110–126; BP diastolic 69–82; PULSE 66–92; RESP 16–98; TEMP 36–36.4; O2SAT 92–99; BMI 12.0
[2024-06-04] MEDS: ACETAMINOPHEN 500 MG TABLET 1000 MG PO ×4 (00:02→17:44)
[2024-06-04] MEDS: ceFAZolin 2 GM in SODIUM CHLORIDE 0.9% 100 ML IV ×3 (06:16→21:24)
[2024-06-04] MEDS: ASPIRIN EC 81 MG TABEC PO ×2 (08:51→21:23)
[2024-06-04] MEDS: PANTOPRAZOLE INJ 40 MG VIAL IV (08:51)
[2024-06-04] MEDS: KETOROLAC INJ 30 MG/ML VIAL 15 MG IVP (08:52)
--- NOTE | 2024-06-04 13:00 | ESPR_ITS ---
Subjective Subjective Brief History: r knee ra Narrative: Patient is a 43yo female with right knee rheumatoid arthritis of significant severity. She is status post right total knee replacement and pain is well- controlled. She was not able to walk to many steps and thus she will be staying another night per Physical therapy Exam Vital Signs Temp Pulse Resp BP Pulse Ox O2 Del Method O2 Flow Rate 97.0 F 90 16 110/72 95 Room Air 2 06/04/24 12:00 06/04/24 12:00 06/04/24 12:06/04/24 12:06/04/24 12:06/04/24 12:06/03/24 14:30 Additional findings Additional findings: Patient is in no acute distress and is cooperative with the examination today. Patient has a normal mood and affect. Breathing is nonlabored. In no respiratory distress. Bilateral extremities were evaluated and demonstrates sensation intact to light touch. Palpable pedal pulses are present. No significant edema is present. Incisional VAC is clean dry and intact. He is wearing a knee immobilizer Objective - Ortho Labs 05/29/24 10:48 05/29/24 10:48 Assessment & Plan Diagnosis (1) Status post total left knee replacement: Status: Acute (2) Rheumatoid arthritis involving both knees: Status: Acute Assessment Additional comments: An is a pleasant 43-year-old female status post right total knee replacement. She should continue aspirin for DVT prophylaxis. She has a Prevena on because of her very friable skin. - Knee immobilizer - Follow-up in 1 week for wound check - She will likely be discharged today
[2024-06-04] MEDS: oxyCODONE HCL 5 MG IR TAB 10 MG PO (14:23)
[2024-06-04] MEDS: MELOXICAM 7.5 MG TABLET PO (21:23)
[2024-06-05] VITALS: BP 133/73; PULSE 66; RESP 16; TEMP 36.3; O2SAT 94
[2024-06-05] MEDS: ACETAMINOPHEN 500 MG TABLET 1000 MG PO ×3 (00:07→11:43)
[2024-06-05] MEDS: oxyCODONE HCL 5 MG IR TAB 10 MG PO ×2 (03:47→11:44)
[2024-06-05 04:00] VITALS: BP 139/91; PULSE 98; RESP 16; TEMP 36.2; O2SAT 93
[2024-06-05] MEDS: ceFAZolin 2 GM in SODIUM CHLORIDE 0.9% 100 ML IV (05:32)
[2024-06-05] MEDS: KETOROLAC INJ 30 MG/ML VIAL 15 MG IVP (07:29)
[2024-06-05] MEDS: CYCLObenzaPRINE 5 MG TABLET PO (07:29)
[2024-06-05] MEDS: PANTOPRAZOLE INJ 40 MG VIAL IV (07:57)
[2024-06-05] MEDS: ASPIRIN EC 81 MG TABEC PO (07:58)
[2024-06-05 08:00] VITALS: BP 135/90; PULSE 95; RESP 16; TEMP 36.4; O2SAT 100
[2024-06-05 08:03] VITALS: PULSE 101; RESP 18; RESP 98
[2024-06-05 10:08] VITALS: BMI 11.0
--- NOTE | 2024-06-05 10:27 | PC.SS ---
Izzy Decker is 43-year-old female admitted to Med-Surg for TKA [id number]. SS conducted bedside contact with the patient to complete initial assessment and to discuss discharge planning.? Patient confirmed demographic information. Patient identifies her sister Joselin Mcclure [phone] as her surrogate decision maker. Patient resides at home with her mom and sister. Pt states she is able to complete all ADL?s independently; pt has a cane and FWW. Pts PCP is Dr. Navi Bush and her pharmacy of choice is [facility] [place] DC options discussed and pt refused ANF services but if HH PT is recommended, pt will be open and does not have a preference. Pts fam will provide transportation upon DC. No further intervention required at this time, vp digital marketing social media and crm would be available to address any further concerns. DC Plan: Home Contact: Joselin Mcclure [phone] PCP: Eleazar
--- NOTE | 2024-06-05 11:27 | CHAP ---
Patient was visited by the Spiritual Care Volunteer who prayed for them. (Volunteer was in the hospital from 10:00-11:27)
[2024-06-05 12:00] VITALS: BP 102/73; PULSE 112; RESP 16; TEMP 36.3; O2SAT 95
== END 2024-06-05 13:50 | disposition home or self-care (01) ==
LOC: S3NX 16:07
PROVIDERS: Anesthesiology; Admitting Provider Orthopaedic Surgery Adult Reconstructive Orthopaedic Surgery; PCP Physician Assistant; Referring Provider Orthopaedic Surgery Adult Reconstructive Orthopaedic Surgery; Visit Provider Orthopaedic Surgery Adult Reconstructive Orthopaedic Surgery
PROC: (CPT 27447; principal; 2024-06-03 11:00)
DX: M06.861 Other specified rheumatoid arthritis, right knee (principal); M25.761 Osteophyte, right knee
CPT/HCPCS: 27447; 20985; 36415; 73560; 80053; 84703; 85025; 85610; 85730; 87081; 96365; 96366; 97162; A4217; A9272; C1713; C1776; G0378; J0131; J0690; J1100; J1885; J2250; J2371; J2405; J2470; J2704; J2710; J2795; J3010; J3490; J7030; J7050; J7120; J7999; A4648; A4649; A9270; J1596

== ENCOUNTER 2024-06-12 10:56 | Outpatient (AMB) | payer MEDICAID, SELFPAY ==
--- NOTE | 2024-06-12 11:41 | PD.ORTHCLVIS ---
Med/Allergies Allergies & Medications Allergies No Known Allergies Allergy (Verified 06/03/24 08:49) Exam Exam Patient is in no acute distress and is cooperative with the examination today. Patient has a normal mood and affect. Breathing is nonlabored. In no respiratory distress. Bilateral extremities were evaluated and demonstrates sensation intact to light touch. Palpable pedal pulses are present. No significant edema is present. Left knee incision is clean dry intact. There is no drainage. We removed the remaining sutures. Range of motion is 0 to 100 degrees. Knee feels stable to varus and valgus stress as well as AP translation Right knee incision is clean dry and intact. It is closed with nylon's Assessment and Plan Problem List (1) Status post total left knee replacement: Status: Acute Plan: Patient is doing well after complex primary total knee replacement for rheumatoid arthritis.She is doing well and her incision looks great. We will see her in approximately 9 to 10 days for stitch removal. We will maintain the knee immobilizer for 1 more (2) Rheumatoid arthritis involving both knees: Status: Acute Office Procedures GNS Level of Care Nursing/Assessment Patient Status: Established Patient Nursing Assessment/Reassesment: Medication Reconciliation, Update PMH in EMR and Vital Signs Coordination of Care: Complex Care and Chronic Disease 1-5, Education Complex Pt/Fam, Consent,records obtained, informed consent, Results/Orders obtained and Staff clarify orders Established Patient Charge Established Patient Point Assignment: 95 Established Patient Point Charge: EP Level 3 (80-115) Questionairres Past Medical History Past Medical History Have you ever been diagnosed with any of the following: Neurological Problems Cerebrovascular Accident (CVA): Yes (5 YEARS AGO) Transient Ischemic Attacks (TIA): Yes (5 yrs ago) Seizures: No Cardiology Problems Congestive Heart Failure: No Respiratory Problems Chronic Obstructive Pulmonary Disease (COPD): No Asthma: No Tuberculosis: Yes (POSITIVE TB TEST CHILD- TREATMENT COMPLETED) Smoking: No Smoking Exposure: No Stomache/Intestinal Problems Hepatitis: No Genital/Urinary Problems Renal Disease: No Reproductive Problems Previous Pregnancies: Yes (X4, 3 children) Musculoskeletal Problems Rheumatoid Arthritis: Yes (TAKES PREDNISONE, last dose 05/28/24, gets IV infusions) Endocrine Problems Diabetes Mellitus Type 1: No Diabetes Mellitus Type 2: Yes (CONTROLLED WITH DIET. NO MEDS) Blood Problems Sickle Cell Disease: No Other Problems Hospitalization: Yes (TIA) Shingles: Yes Falls: No Blood Transfusions: Yes Blood Transfusion Reaction: No Anesthesia Reactions: No MRSA: No Chicken Pox: Yes Measles: Yes Cancer: No Surgical History Total Knee Replacement: Yes Subjective Visit Visit for: follow up visit and post op #1 Immunization / Flu Flu Vaccine in the Last 12 Months: No Flu Vaccine Exclusion Criteria: No Exclusion Criteria History of Present Illness Chief complaint: Right knee replacement An is a pleasant 43-year-old female with rheumatoid arthritis who is here for wound check. She had very thin skin and had a Prevena placed. We removed it today. Pain Pain level (0-10): 2 Pain duration: ON AND OFF Pain quality: aching and other (specify) Pain timing: increases with activity Associated signs & symptoms: weakness Ambulatory data Ambulatory device: walker Review of Systems Review of Systems: All systems negative unless otherwise noted in HPI.
== END 2024-06-12 12:02 | disposition home or self-care (01) ==
LOC: HODSRG 10:56
PROVIDERS: PCP Physician Assistant; Referring Provider Physician Assistant; Supervising Provider Orthopaedic Surgery Adult Reconstructive Orthopaedic Surgery; Visit Provider Orthopaedic Surgery Adult Reconstructive Orthopaedic Surgery
DX: M06.9 Rheumatoid arthritis, unspecified (principal); E11.9 Type 2 diabetes mellitus without complications; Z86.73 Personal history of transient ischemic attack (TIA), and cerebral infarction without residual deficits; Z96.652 Presence of left artificial knee joint
CPT/HCPCS: 99213; G0463

== ENCOUNTER 2024-06-23 14:12 | Outpatient (AMB) | payer MEDICAID, SELFPAY ==
[2024-06-23 14:19] VITALS: BP 113/81; PULSE 99; RESP 16; TEMP 36.7; O2SAT 97; BMI 27.1
--- NOTE | 2024-06-23 14:19 | ORTHONT_ITS ---
Vital signs 06/23/24 14:19 Height 1.55 m Height Method Stated Weight 65.317 kg Weight Measurement Method Standing Scale BMI 27.1 BP 113/81 Blood Pressure Source Automatic Cuff Blood Pressure Location Left Upper Arm Position Sitting Respiration 16 Pulse 99 Pulse Source Monitor Temp 98.1 F Temp Source Temporal Artery Scan Pulse Oximetry (%) 97 Oxygen Delivery Method Room Air Med/Allergies Allergies & Medications Allergies No Known Allergies Allergy (Verified 06/23/24 14:20) Medication Reconciliation acetaminophen 500 mg tablet 1,000 mg PO TID pain 11/01/23 [History Confirmed 06/23/24] acetaminophen 500 mg tablet (Acetaminophen Extra Strength) 1,000 mg (2 x 500 mg) PO Q6H PRN pain #90 tabs 06/04/24 [Rx Confirmed 06/23/24] aspirin 81 mg tablet,delayed release 81 mg PO BID #60 tabs 06/04/24 [Rx Confirmed 06/23/24] cyclobenzaprine 5 mg tablet 5 mg PO TID PRN muscle spasm #60 tabs 06/04/24 [Rx Confirmed 06/23/24] cyclobenzaprine 5 mg tablet 5 mg PO TID PRN muscle spasm #60 tabs 06/04/24 [Rx Confirmed 06/23/24] doxycycline hyclate 100 mg tablet 100 mg PO BID #14 tabs 06/04/24 [Rx Confirmed 06/23/24] gabapentin 300 mg capsule 300 mg PO .qhs #30 caps 06/04/24 [Rx Confirmed 06/23] oxycodone 5 mg tablet 5 mg PO Q6H PRN pain #28 tabs 06/04/24 [Rx Confirmed 06/23/24] sennosides 8.6 mg-docusate sodium 50 mg tablet (Senna-S) 1 tab-cap PO QDAY #30 tabs 06/04/24 [Rx Confirmed 06/23/24] Exam Exam Patient is in no acute distress and is cooperative with the examination today. Patient has a normal mood and affect. Breathing is nonlabored. In no respiratory distress. Bilateral extremities were evaluated and demonstrates sensation intact to light touch. Palpable pedal pulses are present. No significant edema is present. Left knee incision is clean dry intact. There is no drainage. We removed the remaining sutures. Range of motion is 0 to 100 degrees. Knee feels stable to varus and valgus stress as well as AP translation Right knee incision is clean dry and intact. It is closed with nylons She was removed today. The wound looks great Assessment and Plan Problem List (1) Status post total left knee replacement: Status: Acute Plan: Patient is doing well after complex primary total knee replacement for rheumatoid arthritis.She is doing well and her incision looks great. We removed her stitches. She should start with outpatient therapy and can remove the knee immobilizer at this time. We will advance her with physical therapy. She can resume her immunomodulators as well (2) Rheumatoid arthritis involving both knees: Status: Acute Office Procedures GNS Level of Care Nursing/Assessment Patient Status: Established Patient Nursing Assessment/Reassesment: Medication Reconciliation, Update PMH in EMR and Vital Signs Coordination of Care: Complex Care and Chronic Disease 1-5, Consent,records obtained, informed consent, Education Simp Pt/Fam, Results/Orders obtained and Staff clarify orders Established Patient Charge Established Patient Point Assignment: 90 Established Patient Point Charge: EP Level 3 (80-115) MA Intake Visit Data Collection New Patient or Established: Established Patient (seen at [facility] within 3 years) Reason for Visit:: FU RT KNEE WOUND CK Seen by Clinical Staff ONLY (RN/MA): No Sales Account Manager Required: No PCP or OBGYN visit in last 3 months: Yes Hx Now: No Do You Feel Safe at Home: Yes Authorities Contacted: N/A Questionairres Past Medical History Past Medical History Have you ever been diagnosed with any of the following: Neurological Problems Cerebrovascular Accident (CVA): Yes (5 YEARS AGO) Transient Ischemic Attacks (TIA): Yes (5 yrs ago) Seizures: No Cardiology Problems Congestive Heart Failure: No Respiratory Problems Chronic Obstructive Pulmonary Disease (COPD): No Asthma: No Tuberculosis: Yes (POSITIVE TB TEST CHILD- TREATMENT COMPLETED) Smoking: No Smoking Cessation Counseling: No Smoking Exposure: No Stomache/Intestinal Problems Hepatitis: No Genital/Urinary Problems Renal Disease: No Reproductive Problems Previous Pregnancies: Yes (X4, 3 children) Musculoskeletal Problems Rheumatoid Arthritis: Yes (TAKES PREDNISONE, last dose 05/28/24, gets IV infusions) Endocrine Problems Diabetes Mellitus Type 1: No Diabetes Mellitus Type 2: Yes (CONTROLLED WITH DIET. NO MEDS) Blood Problems Sickle Cell Disease: No Other Problems Hospitalization: Yes (TIA) Shingles: Yes Falls: No Blood Transfusions: Yes Blood Transfusion Reaction: No Anesthesia Reactions: No MRSA: No Chicken Pox: Yes Measles: Yes Cancer: No Surgical History Total Knee Replacement: Yes Subjective Visit Visit for: follow up visit and knee (RIGHT KNEE ) Immunization / Flu Flu Vaccine in the Last 12 Months: No Flu Vaccine Exclusion Criteria: Refused by Patient History of Present Illness Chief complaint: Right knee replacement An is a pleasant 43-year-old female with rheumatoid arthritis who is here for wound check. She has been wearing the knee immobilizer. The knee looks great. Personal History Red flag PMH: none Pain Pain level (0-10): 0 Pain duration: ON AND OFF Pain quality: aching and other (specify) Pain timing: increases with activity Associated signs & symptoms: weakness Ambulatory data Ambulatory device: walker Treatments Number of previous injections: 0 Number of Physical Therapy sessions: 0 Improvement with NSAIDS: n/a Review of Systems Review of Systems: All systems negative unless otherwise noted in HPI.
== END 2024-06-23 14:37 | disposition home or self-care (01) ==
LOC: HODSRG 14:12
PROVIDERS: PCP Physician Assistant; Referring Provider Physician Assistant; Supervising Provider Orthopaedic Surgery Adult Reconstructive Orthopaedic Surgery; Visit Provider Orthopaedic Surgery Adult Reconstructive Orthopaedic Surgery
DX: Z96.652 Presence of left artificial knee joint (principal); M06.862 Other specified rheumatoid arthritis, left knee; M06.861 Other specified rheumatoid arthritis, right knee; Z86.73 Personal history of transient ischemic attack (TIA), and cerebral infarction without residual deficits; E11.9 Type 2 diabetes mellitus without complications
CPT/HCPCS: 99213; G0463

== ENCOUNTER 2024-07-07 13:09 | Outpatient (AMB) | payer MEDICAID, SELFPAY ==
[2024-07-07 13:32] VITALS: BP 124/83; PULSE 77; RESP 18; TEMP 36.2; O2SAT 96; BMI 26.4
--- NOTE | 2024-07-07 13:32 | PD.ORTHCLVIS ---
Vital signs 07/07/24 13:32 Height 1.55 m Height Method Stated Weight 63.588 kg Weight Measurement Method Standing Scale BMI 26.4 BP 124/83 Blood Pressure Source Automatic Cuff Blood Pressure Location Right Upper Arm Position Sitting Respiration 18 Pulse 77 Pulse Source Monitor Temp 97.2 F Temp Source Temporal Artery Scan Pulse Oximetry (%) 96 Oxygen Delivery Method Room Air Med/Allergies Allergies & Medications Allergies No Known Allergies Allergy (Verified 07/07/24 13:33) Medication Reconciliation acetaminophen 500 mg tablet 1,000 mg PO TID pain 11/01/23 [History Confirmed 07/07/24] acetaminophen 500 mg tablet (Acetaminophen Extra Strength) 1,000 mg (2 x 500 mg) PO Q6H PRN pain #90 tabs 06/04/24 [Rx Confirmed 07/07/24] aspirin 81 mg tablet,delayed release 81 mg PO BID #60 tabs 06/04/24 [Rx Confirmed 07/07/24] cyclobenzaprine 5 mg tablet 5 mg PO TID PRN muscle spasm #60 tabs 06/04/24 [Rx Confirmed 07/07/24] cyclobenzaprine 5 mg tablet 5 mg PO TID PRN muscle spasm #60 tabs 06/04/24 [Rx Confirmed 07/07/24] doxycycline hyclate 100 mg tablet 100 mg PO BID #14 tabs 06/04/24 [Rx Confirmed 07/07/24] gabapentin 300 mg capsule 300 mg PO .qhs #30 caps 06/04/24 [Rx Confirmed 07/07/24] oxycodone 5 mg tablet 5 mg PO Q6H PRN pain #28 tabs 06/04/24 [Rx Confirmed 07/07/24] sennosides 8.6 mg-docusate sodium 50 mg tablet (Senna-S) 1 tab-cap PO QDAY #30 tabs 06/04/24 [Rx Confirmed 07/07/24] Exam Exam Patient is in no acute distress and is cooperative with the examination today. Patient has a normal mood and affect. Breathing is nonlabored. In no respiratory distress. Bilateral extremities were evaluated and demonstrates sensation intact to light touch. Palpable pedal pulses are present. No significant edema is present. Left knee incision is clean dry intact. There is no drainage. We removed the remaining sutures. Range of motion is 0 to 100 degrees. Knee feels stable to varus and valgus stress as well as AP translation Right knee incision is clean dry and intact. It is closed with nylons She was removed today. The wound looks great Assessment and Plan Problem List (1) Status post total left knee replacement: Status: Acute Plan: Patient is doing well after complex primary total knee replacement for rheumatoid arthritis.She is doing well and There was some wound breakdown on the inferior aspect of her incision. We will treat it with continued local wound care. It does not look like it is infected and there is no drainage. I would not give her antibiotics at this time as it continues to improve. We do not want aggressive physical therapy until it heals. We will see her in approximately 1 week (2) Rheumatoid arthritis involving both knees: Status: Acute Office Procedures GNS Level of Care Nursing/Assessment Patient Status: Established Patient Nursing Assessment/Reassesment: Medication Reconciliation, Update PMH in EMR and Vital Signs Coordination of Care: Complex Care and Chronic Disease 1-5, Education Complex Pt/Fam, Consent,records obtained, informed consent, Results/Orders obtained and Staff clarify orders Special Needs: Language special needs Established Patient Charge Established Patient Point Assignment: 95 Established Patient Point Charge: EP Level 3 (80-115) MA Intake Visit Data Collection New Patient or Established: Established Patient (seen at [facility] within 3 years) Reason for Visit:: F/U ON WOUND Seen by Clinical Staff ONLY (RN/MA): No Architectural Coating Finisher Required: Yes PCP or OBGYN visit in last 3 months: Yes Hx Now: No Do You Feel Safe at Home: Yes Authorities Contacted: N/A Questionairres Past Medical History Past Medical History Have you ever been diagnosed with any of the following: Neurological Problems Cerebrovascular Accident (CVA): Yes (5 YEARS AGO) Transient Ischemic Attacks (TIA): Yes (5 yrs ago) Seizures: No Cardiology Problems Congestive Heart Failure: No Respiratory Problems Chronic Obstructive Pulmonary Disease (COPD): No Asthma: No Tuberculosis: Yes (POSITIVE TB TEST CHILD- TREATMENT COMPLETED) Smoking: No Smoking Cessation Counseling: No Smoking Exposure: No Stomache/Intestinal Problems Hepatitis: No Genital/Urinary Problems Renal Disease: No Reproductive Problems Previous Pregnancies: Yes (X4, 3 children) Musculoskeletal Problems Rheumatoid Arthritis: Yes (TAKES PREDNISONE, last dose 05/28/24, gets IV infusions) Endocrine Problems Diabetes Mellitus Type 1: No Diabetes Mellitus Type 2: Yes (CONTROLLED WITH DIET. NO MEDS) Blood Problems Sickle Cell Disease: No Other Problems Hospitalization: Yes (TIA) Shingles: Yes Falls: No Blood Transfusions: Yes Blood Transfusion Reaction: No Anesthesia Reactions: No MRSA: No Chicken Pox: Yes Measles: Yes Cancer: No Surgical History Total Knee Replacement: Yes Subjective Visit Visit for: follow up visit and knee Immunization / Flu Flu Vaccine in the Last 12 Months: No Flu Vaccine Exclusion Criteria: No Exclusion Criteria History of Present Illness Chief complaint: Right knee replacement An is a pleasant 43-year-old female with rheumatoid arthritis who is here for wound check. She has started working with physical therapy aggressively. She did notice some wound breakdown anteriorly on the inferior aspect of the incision where she had wound healing issues before. She has been doing local wound care and reports dramatic improvement. I did see a picture from a week ago and this is significant improved. There isGranulation tissue is starting to scab Personal History Red flag PMH: none Pain Pain level (0-10): 0 Pain duration: ON AND OFF Pain quality: aching and other (specify) Pain timing: increases with activity Associated signs & symptoms: weakness Ambulatory data Ambulatory device: walker Treatments Number of previous injections: 0 Improvement with previous injections: No Number of Physical Therapy sessions: 0 Improvement with PT: No Improvement with NSAIDS: no Review of Systems Review of Systems: All systems negative unless otherwise noted in HPI.
== END 2024-07-07 13:46 | disposition home or self-care (01) ==
LOC: HODSRG 13:09
PROVIDERS: PCP Physician Assistant; Referring Provider Physician Assistant; Supervising Provider Orthopaedic Surgery Adult Reconstructive Orthopaedic Surgery; Visit Provider Orthopaedic Surgery Adult Reconstructive Orthopaedic Surgery
DX: Z96.652 Presence of left artificial knee joint (principal); M06.862 Other specified rheumatoid arthritis, left knee; M06.861 Other specified rheumatoid arthritis, right knee; Z86.73 Personal history of transient ischemic attack (TIA), and cerebral infarction without residual deficits; E11.9 Type 2 diabetes mellitus without complications
CPT/HCPCS: 99213; G0463

== ENCOUNTER 2024-07-20 12:16 | Outpatient (RCR) | payer MEDICAID, SELFPAY ==
--- NOTE | 2024-07-20 13:25 | PT.OIERPT ---
PT OP Initial Eval Patient Information Outpatient Physical Therapy Treatment Date: 07/20/24 Visit Reasons: Post op knee Medical Diagnosis: Z96.652 Treatment Dx #1: R knee decreased ROM Start of Care: 07/20/24 Date of Onset: 06-03-24 DOS Smoking Status Smoking Status: Never smoker Initial Assessment Subjective: Pt is 44 yr old dominican speaking female s/p R TKA presents ambulating with FWW limited distances. She wasn't ambulating with the FWW prior to therapy but has PMH of CVA with L hemiplegia which limits WB tolerance on L LE. Pt reports low to no pain in the R knee but the wound isn't healed and there is liquid drainage sometimes. PMH: RA, DM, CVA with L ankle drop foot. Pt goal: to ambulate without the walker Objective: R knee AROM: Extension: full Flexion: 97 deg SLR: 45 deg Strength: Quads: 4-/5 HS: 4-/5 Gait: slowly with drop foot on L foot with FWW Incision: scabbed with raised edges Assessment: Pt presentation consistent with post op R TKA with decreased ROM, strength ? and WB tolerance. Pt has full knee extension and flexion is limited by ? myofascial limitations and pain.? Pt requires skilled therapy to improve ROM ? and strength and has good rehab potential. Gait is limited by L LE hemiplegia and drop foot.? Eval followed by HEP with printout. 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 Independent with HEP 2. Improved knee ROM to 110 deg flexion 3. Improved quad and hamstring strength to 4+/5 4. Improved ambulatory tolerance to limited community distances with symmetrical ?? gait pattern without assistive device if safe??? Treatment Plan ? 1. Manual therapy ? 2. Therex ? 3. Modalities as indicated, moist heat, ice, estim Frequency and Duration: 2x a week for 18 visits plus the evaluation. Will need additional auth after 12 sessions Certification Dates: 07/20/24 to 10/17/24 Procedure Charges OP PT Eval Mod Complex 30 minutes: Yes
--- NOTE | 2024-07-28 15:09 | PT.ODS1RPT ---
PT OP Progress/Discharge Note Date of Service: 07/28/24 Progress Note/DC Note Progress Note/Discharge Note: DC Note Patient Information Visit Reasons: Post op knee Service Continue Service or Discharge: Discharge Discharge Date: 07/28/24 Status Subjective: Pt called to say
== END 2024-07-22 23:59 | disposition home or self-care (01) ==
LOC: CPTX 12:16
PROVIDERS: PCP Nurse Practitioner; Referring Provider Orthopaedic Surgery Adult Reconstructive Orthopaedic Surgery; Visit Provider Orthopaedic Surgery Adult Reconstructive Orthopaedic Surgery
DX: M25.561 Pain in right knee (principal); R26.89 Other abnormalities of gait and mobility; Z96.651 Presence of right artificial knee joint
CPT/HCPCS: 97162

== ENCOUNTER 2024-07-21 10:27 | Outpatient (AMB) | payer MEDICAID, SELFPAY ==
[2024-07-21 10:48] VITALS: BP 122/84; PULSE 76; RESP 18; TEMP 36.1; O2SAT 98; BMI 27.1
--- NOTE | 2024-07-21 10:48 | ORTHONT_ITS ---
Vital signs 07/21/24 10:48 Height 1.55 m Height Method Stated Weight 65.034 kg Weight Measurement Method Standing Scale BMI 27.1 BP 122/84 Blood Pressure Source Automatic Cuff Blood Pressure Location Right Upper Arm Position Sitting Respiration 18 Pulse 76 Pulse Source Monitor Temp 97.0 F Temp Source Temporal Artery Scan Pulse Oximetry (%) 98 Oxygen Delivery Method Room Air Med/Allergies Allergies & Medications Allergies No Known Allergies Allergy (Verified 07/21/24 10:50) Medication Reconciliation acetaminophen 500 mg tablet 1,000 mg PO TID pain 11/01/23 [History Confirmed 07/21/24] acetaminophen 500 mg tablet (Acetaminophen Extra Strength) 1,000 mg (2 x 500 mg) PO Q6H PRN pain #90 tabs 06/04/24 [Rx Confirmed 07/21/24] aspirin 81 mg tablet,delayed release 81 mg PO BID #60 tabs 06/04/24 [Rx Confirmed 07/21/24] cyclobenzaprine 5 mg tablet 5 mg PO TID PRN muscle spasm #60 tabs 06/04/24 [Rx Confirmed 07/21/24] cyclobenzaprine 5 mg tablet 5 mg PO TID PRN muscle spasm #60 tabs 06/04/24 [Rx Confirmed 07/21/24] doxycycline hyclate 100 mg tablet 100 mg PO BID #14 tabs 06/04/24 [Rx Confirmed 07/21/24] gabapentin 300 mg capsule 300 mg PO .qhs #30 caps 06/04/24 [Rx Confirmed 06/24 12/17] oxycodone 5 mg tablet 5 mg PO Q6H PRN pain #28 tabs 06/04/24 [Rx Confirmed 07/21/24] sennosides 8.6 mg-docusate sodium 50 mg tablet (Senna-S) 1 tab-cap PO QDAY #30 tabs 06/04/24 [Rx Confirmed 07/21/24] Exam Exam Patient is in no acute distress and is cooperative with the examination today. Patient has a normal mood and affect. Breathing is nonlabored. In no respiratory distress. Bilateral extremities were evaluated and demonstrates sensation intact to light touch. Palpable pedal pulses are present. No significant edema is present. Left knee incision is clean dry intact. There is no drainage. We removed the remaining sutures. Range of motion is 0 to 100 degrees. Knee feels stable to varus and valgus stress as well as AP translation Right knee incision is clean dry and intact. It is closed with nylons She was removed today. There is a 1/2 x 1/2 cm area on the inferior aspect of her incision where there is a scab. I remove the scab and there is granulation tissue formation. We applied Betadine and a dry dressing. Assessment and Plan Problem List (1) Status post total left knee replacement: Status: Acute Plan: Patient is doing well after complex primary total knee replacement for rheumatoid arthritis.She is doing well and There was some wound breakdown on the inferior aspect of her incision. There is granulation tissue formation underneath the scab. I am not tempted to give antibiotics as it appears to be doing well. It is just slow to heal which is not surprising given that she is a rheumatoid patient. I will send her to the wound care center for local wound care. She does have a history of delayed wound healing in this particular area (2) Rheumatoid arthritis involving both knees: Status: Acute Office Procedures GNS Level of Care Nursing/Assessment Patient Status: Established Patient Nursing Assessment/Reassesment: Medication Reconciliation, Update PMH in EMR and Vital Signs Coordination of Care: Complex Care and Chronic Disease 1-5, Education Complex Pt/Fam, Consent,records obtained, informed consent, Results/Orders obtained and Staff clarify orders Special Needs: Language special needs Established Patient Charge Established Patient Point Assignment: 95 Established Patient Point Charge: EP Level 3 (80-115) MA Intake Visit Data Collection New Patient or Established: Established Patient (seen at [facility] within 3 years) Reason for Visit:: F/U ON WOUND Seen by Clinical Staff ONLY (RN/MA): No Vest Finisher Required: Yes PCP or OBGYN visit in last 3 months: Yes Hx Now: No Do You Feel Safe at Home: Yes Authorities Contacted: N/A Questionairres Past Medical History Past Medical History Have you ever been diagnosed with any of the following: Neurological Problems Cerebrovascular Accident (CVA): Yes (5 YEARS AGO) Transient Ischemic Attacks (TIA): Yes (5 yrs ago) Seizures: No Cardiology Problems Congestive Heart Failure: No Respiratory Problems Chronic Obstructive Pulmonary Disease (COPD): No Asthma: No Tuberculosis: Yes (POSITIVE TB TEST CHILD- TREATMENT COMPLETED) Smoking: No Smoking Cessation Counseling: No Smoking Exposure: No Stomache/Intestinal Problems Hepatitis: No Genital/Urinary Problems Renal Disease: No Reproductive Problems Previous Pregnancies: Yes (X4, 3 children) Musculoskeletal Problems Rheumatoid Arthritis: Yes (TAKES PREDNISONE, last dose 05/28/24, gets IV infusions) Endocrine Problems Diabetes Mellitus Type 1: No Diabetes Mellitus Type 2: Yes (CONTROLLED WITH DIET. NO MEDS) Blood Problems Sickle Cell Disease: No Other Problems Hospitalization: Yes (TIA) Shingles: Yes Falls: No Blood Transfusions: Yes Blood Transfusion Reaction: No Anesthesia Reactions: No MRSA: No Chicken Pox: Yes Measles: Yes Cancer: No Surgical History Total Knee Replacement: Yes Subjective Visit Visit for: follow up visit Immunization / Flu Flu Vaccine in the Last 12 Months: No Flu Vaccine Exclusion Criteria: No Exclusion Criteria History of Present Illness Chief complaint: Right knee replacement An is a pleasant 44-year-old female with rheumatoid arthritis who is here for wound check. She has started working with physical therapy aggressively. She did notice some wound breakdown anteriorly on the inferior aspect of the incision where she had wound healing issues before. She has been doing local wound care and reports dramatic improvement. We remove the scab and there is granulation tissue underneath the Scab. There is granulation tissue formation. This is in the same spot where she had an injury a while ago and required Local wound care which healed eventually. She reports that this is actually healing faster Personal History Red flag PMH: none Pain Pain level (0-10): 0 Pain duration: ON AND OFF Pain quality: aching and other (specify) Pain timing: increases with activity Associated signs & symptoms: weakness Ambulatory data Ambulatory device: walker Treatments Number of previous injections: 0 Improvement with previous injections: No Number of Physical Therapy sessions: 0 Improvement with PT: No Improvement with NSAIDS: no Review of Systems Review of Systems: All systems negative unless otherwise noted in HPI.
== END 2024-07-21 11:04 | disposition home or self-care (01) ==
LOC: HODSRG 10:27
PROVIDERS: PCP Physician Assistant; Referring Provider Physician Assistant; Supervising Provider Orthopaedic Surgery Adult Reconstructive Orthopaedic Surgery; Visit Provider Orthopaedic Surgery Adult Reconstructive Orthopaedic Surgery
DX: Z96.652 Presence of left artificial knee joint (principal); M06.862 Other specified rheumatoid arthritis, left knee; M06.861 Other specified rheumatoid arthritis, right knee; L92.9 Granulomatous disorder of the skin and subcutaneous tissue, unspecified; Z86.73 Personal history of transient ischemic attack (TIA), and cerebral infarction without residual deficits; E11.9 Type 2 diabetes mellitus without complications
CPT/HCPCS: 99213; G0463

== ENCOUNTER → 2024-07-31 | Outpatient (CLI) | payer MEDICAID, SELFPAY | END | disposition home or self-care (01) | PROVIDERS: Visit Provider Surgery | DX: T81.89XA Other complications of procedures, not elsewhere classified, initial encounter (principal); L97.812 Non-pressure chronic ulcer of other part of right lower leg with fat layer exposed; E11.628 Type 2 diabetes mellitus with other skin complications; Z96.651 Presence of right artificial knee joint; J45.909 Unspecified asthma, uncomplicated; I10 Essential (primary) hypertension; M06.9 Rheumatoid arthritis, unspecified | CPT/HCPCS: 11042; 99213; G0463 ==

== ENCOUNTER → 2024-08-07 | Outpatient (CLI) | payer MEDICAID, SELFPAY | END | disposition home or self-care (01) | LOC: SWHD 10:06 | PROVIDERS: PCP Physician Assistant; Referring Provider Physician Assistant; Visit Provider Surgery | DX: T81.89XA Other complications of procedures, not elsewhere classified, initial encounter (principal); L97.812 Non-pressure chronic ulcer of other part of right lower leg with fat layer exposed; E11.628 Type 2 diabetes mellitus with other skin complications; Z96.651 Presence of right artificial knee joint; J45.909 Unspecified asthma, uncomplicated; I10 Essential (primary) hypertension; M06.9 Rheumatoid arthritis, unspecified | CPT/HCPCS: 11042; A9270 ==

== ENCOUNTER → 2024-08-14 | Outpatient (CLI) | payer MEDICAID, SELFPAY | END | disposition home or self-care (01) | LOC: SWHD 10:38 | PROVIDERS: PCP Physician Assistant; Referring Provider Physician Assistant; Visit Provider Surgery | DX: T81.89XA Other complications of procedures, not elsewhere classified, initial encounter (principal); L97.812 Non-pressure chronic ulcer of other part of right lower leg with fat layer exposed; E11.628 Type 2 diabetes mellitus with other skin complications; Z96.651 Presence of right artificial knee joint; J45.909 Unspecified asthma, uncomplicated; I10 Essential (primary) hypertension; M06.9 Rheumatoid arthritis, unspecified | CPT/HCPCS: A9270 ==

== ENCOUNTER 2024-08-28 09:58 | Outpatient (AMB) | payer MEDICAID, SELFPAY ==
[2024-08-28 10:11] VITALS: BP 130/86; PULSE 74; RESP 18; TEMP 36.8; O2SAT 94; BMI 26.3
--- NOTE | 2024-08-28 10:11 | PD.ORTHCLVIS ---
Vital signs 08/28/24 10:11 Height 1.55 m Height Method Stated Weight 63.304 kg Weight Measurement Method Standing Scale BMI 26.3 BP 130/86 H Blood Pressure Source Automatic Cuff Blood Pressure Location Right Upper Arm Position Sitting Respiration 18 Pulse 74 Pulse Source Monitor Temp 98.2 F Temp Source Temporal Artery Scan Pulse Oximetry (%) 94 L Oxygen Delivery Method Room Air Med/Allergies Allergies & Medications Allergies No Known Allergies Allergy (Verified 08/28/24 10:13) Medication Reconciliation acetaminophen 500 mg tablet 1,000 mg PO TID pain 11/01/23 [History Confirmed 08/28/24] acetaminophen 500 mg tablet (Acetaminophen Extra Strength) 1,000 mg (2 x 500 mg) PO Q6H PRN pain #90 tabs 06/04/24 [Rx Confirmed 08/28/24] aspirin 81 mg tablet,delayed release 81 mg PO BID #60 tabs 06/04/24 [Rx Confirmed 08/28/24] cyclobenzaprine 5 mg tablet 5 mg PO TID PRN muscle spasm #60 tabs 06/04/24 [Rx Confirmed 08/28/24] cyclobenzaprine 5 mg tablet 5 mg PO TID PRN muscle spasm #60 tabs 06/04/24 [Rx Confirmed 08/28/24] doxycycline hyclate 100 mg tablet 100 mg PO BID #14 tabs 06/04/24 [Rx Confirmed 08/28/24] gabapentin 300 mg capsule 300 mg PO .qhs #30 caps 06/04/24 [Rx Confirmed 08/28/24] oxycodone 5 mg tablet 5 mg PO Q6H PRN pain #28 tabs 06/04/24 [Rx Confirmed 08/28/24] sennosides 8.6 mg-docusate sodium 50 mg tablet (Senna-S) 1 tab-cap PO QDAY #30 tabs 06/04/24 [Rx Confirmed 08/28/24] Exam Exam Patient is in no acute distress and is cooperative with the examination today. Patient has a normal mood and affect. Breathing is nonlabored. In no respiratory distress. Bilateral extremities were evaluated and demonstrates sensation intact to light touch. Palpable pedal pulses are present. No significant edema is present. Left knee incision is clean dry intact. There is no drainage. We removed the remaining sutures. Range of motion is 0 to 100 degrees. Knee feels stable to varus and valgus stress as well as AP translation Right knee incision is clean dry and intact. It is closed with nylons She was removed today. There is a 2 x 2 cm wound. It appears To be very superficial at this time. There is no drainage Assessment and Plan Problem List (1) Status post total left knee replacement: Status: Acute Plan: Patient is doing well after complex primary total knee replacement for rheumatoid arthritis.S he is doing well and There was some wound breakdown on the inferior aspect of her incision. She is seeing a wound healing specialist and appears to be healing well. It is very superficial at this time. (2) Rheumatoid arthritis involving both knees: Status: Acute Office Procedures GNS Level of Care Nursing/Assessment Patient Status: Established Patient Nursing Assessment/Reassesment: Medication Reconciliation, Update PMH in EMR and Vital Signs Coordination of Care: Complex Care and Chronic Disease 1-5, Education Complex Pt/Fam, Consent,records obtained, informed consent, Results/Orders obtained and Staff clarify orders Special Needs: Language special needs Established Patient Charge Established Patient Point Assignment: 95 Established Patient Point Charge: EP Level 3 (80-115) MA Intake Visit Data Collection New Patient or Established: Established Patient (seen at [facility] within 3 years) Reason for Visit:: POST OP ON RIGHT TKA Seen by Clinical Staff ONLY (RN/MA): No Verbal consent obtained for Telemed visit?: No Finance Consultant Required: Yes PCP or OBGYN visit in last 3 months: Yes Hx Now: No Do You Feel Safe at Home: Yes Authorities Contacted: N/A Questionairres Past Medical History Past Medical History Have you ever been diagnosed with any of the following: Neurological Problems Cerebrovascular Accident (CVA): Yes (5 YEARS AGO) Transient Ischemic Attacks (TIA): Yes (5 yrs ago) Seizures: No Cardiology Problems Congestive Heart Failure: No Respiratory Problems Chronic Obstructive Pulmonary Disease (COPD): No Asthma: No Tuberculosis: Yes (POSITIVE TB TEST CHILD- TREATMENT COMPLETED) Smoking: No Smoking Cessation Counseling: No Smoking Exposure: No Stomache/Intestinal Problems Hepatitis: No Genital/Urinary Problems Renal Disease: No Reproductive Problems Previous Pregnancies: Yes (X4, 3 children) Musculoskeletal Problems Rheumatoid Arthritis: Yes (TAKES PREDNISONE, last dose 05/28/24, gets IV infusions) Endocrine Problems Diabetes Mellitus Type 1: No Diabetes Mellitus Type 2: Yes (CONTROLLED WITH DIET. NO MEDS) Blood Problems Sickle Cell Disease: No Other Problems Hospitalization: Yes (TIA) Shingles: Yes Falls: No Blood Transfusions: Yes Blood Transfusion Reaction: No Anesthesia Reactions: No MRSA: No Chicken Pox: Yes Measles: Yes Cancer: No Surgical History Total Knee Replacement: Yes Subjective Visit Visit for: follow up visit and knee Immunization / Flu Flu Vaccine in the Last 12 Months: No Flu Vaccine Exclusion Criteria: No Exclusion Criteria History of Present Illness Chief complaint: POST OP RIGHT TKA An is a pleasant 44-year-old female with rheumatoid arthritis who is here for wound check. She has started working with physical therapy aggressively. She has had some delayed wound healing and has been seeing wound care. The wound looks significantly better than it was before. Personal History Occupation: UNEMPLOYED Red flag PMH: other (specify) BMI Counceling provided: No Pain Pain level (0-10): 0 Pain duration: ON AND OFF Pain quality: aching and other (specify) Pain timing: increases with activity Associated signs & symptoms: none Ambulatory data Ambulatory device: none Treatments Number of previous injections: 0 Improvement with previous injections: No Number of Physical Therapy sessions: 0 Improvement with PT: No Improvement with NSAIDS: no Review of Systems Review of Systems: All systems negative unless otherwise noted in HPI.
== END 2024-08-28 10:27 | disposition home or self-care (01) ==
PROVIDERS: PCP Physician Assistant; Referring Provider Physician Assistant; Supervising Provider Orthopaedic Surgery Adult Reconstructive Orthopaedic Surgery; Visit Provider Orthopaedic Surgery Adult Reconstructive Orthopaedic Surgery
DX: Z96.652 Presence of left artificial knee joint (principal); M06.862 Other specified rheumatoid arthritis, left knee; M06.861 Other specified rheumatoid arthritis, right knee; E11.9 Type 2 diabetes mellitus without complications; Z86.73 Personal history of transient ischemic attack (TIA), and cerebral infarction without residual deficits
CPT/HCPCS: 99213; G0463

== ENCOUNTER → 2024-09-04 | Outpatient (CLI) | payer MEDICAID, SELFPAY | END | disposition home or self-care (01) | LOC: SWHD 09:43 | PROVIDERS: PCP Physician Assistant; Referring Provider Physician Assistant; Visit Provider Surgery | DX: T81.89XA Other complications of procedures, not elsewhere classified, initial encounter (principal); L97.812 Non-pressure chronic ulcer of other part of right lower leg with fat layer exposed; E11.628 Type 2 diabetes mellitus with other skin complications; Z96.651 Presence of right artificial knee joint; J45.909 Unspecified asthma, uncomplicated; I10 Essential (primary) hypertension; M06.9 Rheumatoid arthritis, unspecified | CPT/HCPCS: 11042; A9270 ==

== ENCOUNTER → 2024-09-11 | Outpatient (CLI) | payer MEDICAID, SELFPAY | END | disposition home or self-care (01) | LOC: SWHD 10:03 | PROVIDERS: PCP Physician Assistant; Referring Provider Physician Assistant; Visit Provider Student in an Organized Health Care Education/Training Program | DX: T81.89XA Other complications of procedures, not elsewhere classified, initial encounter (principal); S81.001A Unspecified open wound, right knee, initial encounter; X58.XXXA Exposure to other specified factors, initial encounter; L97.812 Non-pressure chronic ulcer of other part of right lower leg with fat layer exposed; E11.628 Type 2 diabetes mellitus with other skin complications; Z96.651 Presence of right artificial knee joint; J45.909 Unspecified asthma, uncomplicated; I10 Essential (primary) hypertension; M06.9 Rheumatoid arthritis, unspecified | CPT/HCPCS: 99213; G0463 ==

== ENCOUNTER → 2024-09-18 | Outpatient (CLI) | payer MEDICAID, SELFPAY | END | disposition home or self-care (01) | LOC: SWHD 10:53 | PROVIDERS: PCP Physician Assistant; Referring Provider Physician Assistant; Visit Provider Physician Assistant | DX: T81.89XA Other complications of procedures, not elsewhere classified, initial encounter (principal); S81.001A Unspecified open wound, right knee, initial encounter; X58.XXXA Exposure to other specified factors, initial encounter; L97.812 Non-pressure chronic ulcer of other part of right lower leg with fat layer exposed; E11.628 Type 2 diabetes mellitus with other skin complications; Z96.651 Presence of right artificial knee joint; J45.909 Unspecified asthma, uncomplicated; I10 Essential (primary) hypertension; M06.9 Rheumatoid arthritis, unspecified | CPT/HCPCS: 97597; A9270 ==

== ENCOUNTER 2024-10-08 09:32 | Outpatient (AMB) | payer MEDICAID, SELFPAY ==
--- NOTE | 2024-10-08 09:37 | PD.ORTHCLVIS ---
Vital signs 10/08/24 09:42 Height 1.55 m Height Method Stated Weight 64.127 kg Weight Measurement Method Standing Scale BMI 26.6 BP 132/87 H Blood Pressure Source Automatic Cuff Blood Pressure Location Left Upper Arm Position Sitting Respiration 16 Pulse 72 Pulse Source Monitor Temp 97.3 F Temp Source Temporal Artery Scan Pulse Oximetry (%) 96 Oxygen Delivery Method Room Air Med/Allergies Allergies & Medications Allergies No Known Allergies Allergy (Verified 10/08/24 09:43) Medication Reconciliation acetaminophen 500 mg tablet 1,000 mg PO TID pain 11/01/23 [History Confirmed 10/08/24] acetaminophen 500 mg tablet (Acetaminophen Extra Strength) 1,000 mg (2 x 500 mg) PO Q6H PRN pain #90 tabs 06/04/24 [Rx Confirmed 10/08/24] aspirin 81 mg tablet,delayed release 81 mg PO BID #60 tabs 06/04/24 [Rx Confirmed 10/08/24] cyclobenzaprine 5 mg tablet 5 mg PO TID PRN muscle spasm #60 tabs 06/04/24 [Rx Confirmed 10/08/24] cyclobenzaprine 5 mg tablet 5 mg PO TID PRN muscle spasm #60 tabs 06/04/24 [Rx Confirmed 10/08/24] doxycycline hyclate 100 mg tablet 100 mg PO BID #14 tabs 06/04/24 [Rx Confirmed 10/08/24] gabapentin 300 mg capsule 300 mg PO .qhs #30 caps 06/04/24 [Rx Confirmed 10/08/24] oxycodone 5 mg tablet 5 mg PO Q6H PRN pain #28 tabs 06/04/24 [Rx Confirmed 10/08/24] sennosides 8.6 mg-docusate sodium 50 mg tablet (Senna-S) 1 tab-cap PO QDAY #30 tabs 06/04/24 [Rx Confirmed 10/08/24] Exam Exam Patient is in no acute distress and is cooperative with the examination today. Patient has a normal mood and affect. Breathing is nonlabored. In no respiratory distress. Bilateral extremities were evaluated and demonstrates sensation intact to light touch. Palpable pedal pulses are present. No significant edema is present. Left knee incision is clean dry intact. There is no drainage. We removed the remaining sutures. Range of motion is 0 to 100 degrees. Knee feels stable to varus and valgus stress as well as AP translation Right knee incision is clean dry and intact. The incision is almost completely healed at this time Assessment and Plan Problem List (1) Rheumatoid arthritis involving both knees: Status: Acute (2) Status post total left knee replacement: Status: Acute Plan: Patient is doing well after complex primary total knee replacement for rheumatoid arthritis.S he is doing well and There was some wound breakdown on the inferior aspect of her incision which has done very well with local wound care. She can start her immunomodulators soon Office Procedures GNS Level of Care Nursing/Assessment Patient Status: Established Patient Nursing Assessment/Reassesment: Medication Reconciliation, Update PMH in EMR and Vital Signs Coordination of Care: Complex Care and Chronic Disease 1-5, Consent,records obtained, informed consent, Education Simp Pt/Fam, Results/Orders obtained and Staff clarify orders Special Needs: Language special needs Miscellaneous Interventions: Dressing placement or removal and Wound Cleaning/Preperation Established Patient Charge Established Patient Point Assignment: 135 Established Patient Point Charge: EP Level 4 (120-155) MA Intake Visit Data Collection New Patient or Established: Established Patient (seen at [facility] within 3 years) Reason for Visit:: KNEE FOLLOW UP Seen by Clinical Staff ONLY (RN/MA): No Verbal consent obtained for Telemed visit?: No Data Communications Analyst Required: Yes PCP or OBGYN visit in last 3 months: Yes Hx Now: No Do You Feel Safe at Home: Yes Authorities Contacted: N/A Questionairres Past Medical History Past Medical History Have you ever been diagnosed with any of the following: Neurological Problems Cerebrovascular Accident (CVA): Yes (5 YEARS AGO) Transient Ischemic Attacks (TIA): Yes (5 yrs ago) Seizures: No Cardiology Problems Congestive Heart Failure: No Respiratory Problems Chronic Obstructive Pulmonary Disease (COPD): No Asthma: No Tuberculosis: Yes (POSITIVE TB TEST CHILD- TREATMENT COMPLETED) Smoking: No Smoking Cessation Counseling: No Smoking Exposure: No Stomache/Intestinal Problems Hepatitis: No Genital/Urinary Problems Renal Disease: No Reproductive Problems Previous Pregnancies: Yes (X4, 3 children) Musculoskeletal Problems Rheumatoid Arthritis: Yes (TAKES PREDNISONE, last dose 05/28/24, gets IV infusions) Endocrine Problems Diabetes Mellitus Type 1: No Diabetes Mellitus Type 2: Yes (CONTROLLED WITH DIET. NO MEDS) Blood Problems Sickle Cell Disease: No Other Problems Hospitalization: Yes (TIA) Shingles: Yes Falls: No Blood Transfusions: Yes Blood Transfusion Reaction: No Anesthesia Reactions: No MRSA: No Chicken Pox: Yes Measles: Yes Cancer: No Surgical History Total Knee Replacement: Yes Subjective Visit Visit for: follow up visit and knee Immunization / Flu Flu Vaccine in the Last 12 Months: No Flu Vaccine Exclusion Criteria: No Exclusion Criteria History of Present Illness Chief complaint: POST OP RIGHT TKA An is a pleasant 44-year-old female with rheumatoid arthritis who is here for wound check. She has started working with physical therapy aggressively. She has had some delayed wound healing and has been seeing wound care. The wound looks significantly better than it was before. The wound is almost completely healed. 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 It is almost completely healed at this time. Personal History Occupation: UNEMPLOYED Red flag PMH: other (specify) BMI Counceling provided: No Pain Pain level (0-10): 0 Pain duration: ON AND OFF Pain quality: aching and other (specify) Pain timing: increases with activity Associated signs & symptoms: none Ambulatory data Ambulatory device: none Treatments Number of previous injections: 0 Improvement with previous injections: No Number of Physical Therapy sessions: 0 Improvement with PT: No Improvement with NSAIDS: no Review of Systems Review of Systems: All systems negative unless otherwise noted in HPI.
[2024-10-08 09:42] VITALS: BP 132/87; PULSE 72; RESP 16; TEMP 36.3; O2SAT 96; BMI 26.6
== END 2024-10-08 10:02 | disposition home or self-care (01) ==
LOC: HODSRG 09:32
PROVIDERS: PCP Physician Assistant; Referring Provider Physician Assistant; Supervising Provider Orthopaedic Surgery Adult Reconstructive Orthopaedic Surgery; Visit Provider Orthopaedic Surgery Adult Reconstructive Orthopaedic Surgery
DX: M06.862 Other specified rheumatoid arthritis, left knee (principal); M06.861 Other specified rheumatoid arthritis, right knee; Z96.652 Presence of left artificial knee joint; Z86.73 Personal history of transient ischemic attack (TIA), and cerebral infarction without residual deficits; E11.9 Type 2 diabetes mellitus without complications
CPT/HCPCS: 99214; G0463

== ENCOUNTER → 2024-10-09 | Outpatient (CLI) | payer MEDICAID, SELFPAY | END | disposition home or self-care (01) | LOC: SWHD 09:54 | PROVIDERS: PCP Physician Assistant; Referring Provider Physician Assistant; Visit Provider Physician Assistant | DX: T81.89XA Other complications of procedures, not elsewhere classified, initial encounter (principal); S81.001A Unspecified open wound, right knee, initial encounter; X58.XXXA Exposure to other specified factors, initial encounter; L97.812 Non-pressure chronic ulcer of other part of right lower leg with fat layer exposed; E11.628 Type 2 diabetes mellitus with other skin complications; J45.909 Unspecified asthma, uncomplicated; I10 Essential (primary) hypertension; M06.9 Rheumatoid arthritis, unspecified | CPT/HCPCS: 99213; A9270; G0463 ==

== ENCOUNTER → 2024-10-23 | Outpatient (CLI) | payer MEDICAID, SELFPAY | END | disposition home or self-care (01) | LOC: SWHD 09:53 | PROVIDERS: PCP Physician Assistant; Referring Provider Physician Assistant; Visit Provider Surgery | DX: T81.89XA Other complications of procedures, not elsewhere classified, initial encounter (principal); S81.001A Unspecified open wound, right knee, initial encounter; X58.XXXA Exposure to other specified factors, initial encounter; L97.812 Non-pressure chronic ulcer of other part of right lower leg with fat layer exposed; E11.628 Type 2 diabetes mellitus with other skin complications; J45.909 Unspecified asthma, uncomplicated; I10 Essential (primary) hypertension; M06.9 Rheumatoid arthritis, unspecified | CPT/HCPCS: 99213; A9270; G0463 ==

== ENCOUNTER → 2024-11-06 | Outpatient (CLI) | payer MEDICAID, SELFPAY | END | disposition home or self-care (01) | LOC: SWHD 09:43 | PROVIDERS: PCP Physician Assistant; Referring Provider Physician Assistant; Visit Provider Physician Assistant | DX: T81.89XA Other complications of procedures, not elsewhere classified, initial encounter (principal); S81.001A Unspecified open wound, right knee, initial encounter; X58.XXXA Exposure to other specified factors, initial encounter; L97.812 Non-pressure chronic ulcer of other part of right lower leg with fat layer exposed; E11.628 Type 2 diabetes mellitus with other skin complications; J45.909 Unspecified asthma, uncomplicated; I10 Essential (primary) hypertension; M06.9 Rheumatoid arthritis, unspecified | CPT/HCPCS: 99213; A9270; G0463 ==

== ENCOUNTER → 2024-11-13 | Outpatient (CLI) | payer MEDICAID, SELFPAY | END | disposition home or self-care (01) | LOC: SWHD 10:34 | PROVIDERS: PCP Physician Assistant; Referring Provider Physician Assistant; Visit Provider Surgery | DX: T81.89XA Other complications of procedures, not elsewhere classified, initial encounter (principal); S81.001A Unspecified open wound, right knee, initial encounter; X58.XXXA Exposure to other specified factors, initial encounter; L97.812 Non-pressure chronic ulcer of other part of right lower leg with fat layer exposed; E11.628 Type 2 diabetes mellitus with other skin complications; J45.909 Unspecified asthma, uncomplicated; I10 Essential (primary) hypertension; M06.9 Rheumatoid arthritis, unspecified | CPT/HCPCS: 99212; G0463 ==

== ENCOUNTER → 2025-01-07 | Outpatient (CLI) | payer MEDICAID, SELFPAY ==
--- NOTE | 2025-01-07 | XR_ITS ---
EXAMINATION: Bilateral AP knees standing single view PA and lateral axial left knee 3 views TECHNIQUE: Bilateral AP knees standing single view PA standing flexion left knee, standing lateral left knee, axial left knee 3 views total 4 views Date and time: January 07 2025 1159 hours INDICATIONS: Left knee pain beginning 2 weeks ago. FINDINGS: Bilateral total knee arthroplasties. Satisfactory alignment On the PA left knee view there is a subtle radiolucency in the lateral femoral condylar region No patellar dislocation IMPRESSION: Consider follow-up CT scan left knee to exclude nondisplaced fracture lateral left femoral condyle
== END | disposition home or self-care (01) ==
LOC: CDIM 11:35
PROVIDERS: PCP Physician Assistant; Referring Provider Orthopaedic Surgery Adult Reconstructive Orthopaedic Surgery; Visit Provider Orthopaedic Surgery Adult Reconstructive Orthopaedic Surgery
DX: M25.562 Pain in left knee (principal); Z96.652 Presence of left artificial knee joint
CPT/HCPCS: 73564

== ENCOUNTER 2025-01-15 10:51 | Outpatient (AMB) | payer MEDICAID, SELFPAY ==
--- NOTE | 2025-01-15 11:02 | PD.ORTHCLVIS ---
Vital signs 01/15/25 11:09 Height 1.55 m Height Method Stated Weight 63.73 kg Weight Measurement Method Standing Scale BMI 26.5 BP 131/86 H Blood Pressure Source Automatic Cuff Blood Pressure Location Left Upper Arm Position Sitting Respiration 19 Pulse 72 Pulse Source Monitor Temp 97.5 F Temp Source Temporal Artery Scan Pulse Oximetry (%) 98 Oxygen Delivery Method Room Air Med/Allergies Allergies & Medications Allergies No Known Allergies Allergy (Verified 01/15/25 11:10) Medication Reconciliation acetaminophen 500 mg tablet 1,000 mg PO TID pain 11/01/23 [History Confirmed 01/15/25] acetaminophen 500 mg tablet (Acetaminophen Extra Strength) 1,000 mg (2 x 500 mg) PO Q6H PRN pain #90 tabs 06/04/24 [Rx Confirmed 01/15/25] aspirin 81 mg tablet,delayed release 81 mg PO BID #60 tabs 06/04/24 [Rx Confirmed 01/15/25] cyclobenzaprine 5 mg tablet 5 mg PO TID PRN muscle spasm #60 tabs 06/04/24 [Rx Confirmed 01/15/25] cyclobenzaprine 5 mg tablet 5 mg PO TID PRN muscle spasm #60 tabs 06/04/24 [Rx Confirmed 01/15/25] doxycycline hyclate 100 mg tablet 100 mg PO BID #14 tabs 06/04/24 [Rx Confirmed 01/15/25] gabapentin 300 mg capsule 300 mg PO .qhs #30 caps 06/04/24 [Rx Confirmed 01/15/25] oxycodone 5 mg tablet 5 mg PO Q6H PRN pain #28 tabs 06/04/24 [Rx Confirmed 01/15/25] sennosides 8.6 mg-docusate sodium 50 mg tablet (Senna-S) 1 tab-cap PO QDAY #30 tabs 06/04/24 [Rx Confirmed 01/15/25] Exam Exam Patient is in no acute distress and is cooperative with the examination today. Patient has a normal mood and affect. Breathing is nonlabored. In no respiratory distress. Bilateral extremities were evaluated and demonstrates sensation intact to light touch. Palpable pedal pulses are present. No significant edema is present. Left knee incision is clean dry intact. There is no drainage. We removed the remaining sutures. Range of motion is 0 to 100 degrees. Knee feels stable to varus and valgus stress as well as AP translation. The knee is tender to palpation laterally over the femoral condyle X-rays of the left knee from 01/07/2025 demonstrates a total knee replacement with a cemented tibial component and a femoral component with a TS poly. There is a line in the femoral condyle which is nondisplaced and may be consistent with a condyle fracture Assessment and Plan Problem List (1) Rheumatoid arthritis involving both knees: Status: Acute (2) Status post total left knee replacement: Status: Acute Plan: Patient is doing well after complex primary total knee replacement for rheumatoid arthritis until a injury 2 weeks ago. We will obtain a CT scan. I will also limit her weightbearing and put her in a knee immobilizer until we can better elucidate what is going on. She is able to ambulate Office Procedures GNS Level of Care Nursing/Assessment Patient Status: Established Patient Nursing Assessment/Reassesment: Medication Reconciliation, Update PMH in EMR and Vital Signs Coordination of Care: Complex Care and Chronic Disease 1-5, Education Complex Pt/Fam, Consent,records obtained, informed consent, Results/Orders obtained and Staff clarify orders Special Needs: Language special needs Established Patient Charge Established Patient Point Assignment: 95 Established Patient Point Charge: EP Level 3 (80-115) MA Intake Visit Data Collection New Patient or Established: Established Patient (seen at [facility] within 3 years) Reason for Visit:: KNEE FOLLOW UP Seen by Clinical Staff ONLY (RN/MA): No Verbal consent obtained for Telemed visit?: No 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 PCP or OBGYN visit in last 3 months: Yes Hx Now: No Do You Feel Safe at Home: Yes Authorities Contacted: N/A Questionairres Past Medical History Past Medical History Have you ever been diagnosed with any of the following: Neurological Problems Cerebrovascular Accident (CVA): Yes (5 YEARS AGO) Transient Ischemic Attacks (TIA): Yes (5 yrs ago) Seizures: No Cardiology Problems Congestive Heart Failure: No Respiratory Problems Chronic Obstructive Pulmonary Disease (COPD): No Asthma: No Tuberculosis: Yes (POSITIVE TB TEST CHILD- TREATMENT COMPLETED) Smoking: No Smoking Cessation Counseling: No Smoking Exposure: No Stomache/Intestinal Problems Hepatitis: No Genital/Urinary Problems Renal Disease: No Reproductive Problems Previous Pregnancies: Yes (X4, 3 children) Musculoskeletal Problems Rheumatoid Arthritis: Yes (TAKES PREDNISONE, last dose 3/06/25, gets IV infusions) Endocrine Problems Diabetes Mellitus Type 1: No Diabetes Mellitus Type 2: Yes (CONTROLLED WITH DIET. NO MEDS) Blood Problems Sickle Cell Disease: No Other Problems Hospitalization: Yes (TIA) Shingles: Yes Falls: No Blood Transfusions: Yes Blood Transfusion Reaction: No Anesthesia Reactions: No MRSA: No Chicken Pox: Yes Measles: Yes Cancer: No Surgical History Total Knee Replacement: Yes Subjective Visit Visit for: follow up visit and knee Immunization / Flu Flu Vaccine in the Last 12 Months: No Flu Vaccine Exclusion Criteria: No Exclusion Criteria History of Present Illness Chief complaint: POST OP RIGHT TKA An is a pleasant 44-year-old female with rheumatoid arthritis who presents for routine follow-up. She had a injury 2 weeks ago when she was stepping off transportation from approximately 4 feet and felt like there was sudden increase in pain when planting. The pain is on the lateral aspect of her knee. We ordered an x-ray 1 week ago. This demonstrates a possible femoral condyle fracture on the lateral aspect. The radiologist is recommending a CT scan and I would agree. She is able to ambulate. Personal History Occupation: UNEMPLOYED Red flag PMH: other (specify) BMI Counceling provided: No Pain Pain level (0-10): 0 Pain duration: ON AND OFF Pain quality: aching and other (specify) Pain timing: increases with activity Associated signs & symptoms: none Ambulatory data Ambulatory device: none Treatments Number of previous injections: 0 Improvement with previous injections: No Number of Physical Therapy sessions: 0 Improvement with PT: No Improvement with NSAIDS: no Review of Systems Review of Systems: All systems negative unless otherwise noted in HPI.
[2025-01-15 11:09] VITALS: BP 131/86; PULSE 72; RESP 19; TEMP 36.4; O2SAT 98; BMI 26.5
== END 2025-01-15 11:20 | disposition home or self-care (01) ==
LOC: HODSRG 10:51
PROVIDERS: PCP Physician Assistant; Referring Provider Physician Assistant; Supervising Provider Orthopaedic Surgery Adult Reconstructive Orthopaedic Surgery; Visit Provider Orthopaedic Surgery Adult Reconstructive Orthopaedic Surgery
DX: Z47.1 Aftercare following joint replacement surgery (principal); Z96.651 Presence of right artificial knee joint; M06.862 Other specified rheumatoid arthritis, left knee
CPT/HCPCS: 99213; G0463

== ENCOUNTER → 2025-02-03 | Outpatient (CLI) | payer MEDICAID, SELFPAY ==
[2025-02-03 09:59] LABS: HCG Qualitative,Urine Negative
--- NOTE | 2025-02-03 11:00 | XR_ITS ---
Examination: CT left lower extremity, without contrast. 2-D sagittal reconstructions. 2-D coronal reconstructions. 3-D reconstructions. Date and time of exam: February 03, 2025, 1020 hours INDICATIONS: Left knee hyperflexion injury subtle radiolucency in the lateral femoral condylar region left knee on plain films January 07, 2025 CTDI: vol (mGy): 8.45 DLP: (mGycm): 250 Technique: Multiple 1.25 mm axial sections of the left lower extremity without intravenous contrast have been obtained. 2-D sagittal and coronal reconstructions have been obtained. 3-D reconstructions have been obtained. Low dose protocols were performed. One or more of the following dose reduction techniques were used; automated exposure control, adjustment of the mA and/or KV according to patient size, use of iterative reconstruction technique. Findings: Condyles on this study appear intact Proximal tibia fibular head and neck appear intact No loosening of the prosthetic components. No patellar dislocation Moderate knee effusion IMPRESSION:: No acute fracture depicted Recommend repeat plain films left knee follow-up
== END | disposition home or self-care (01) ==
LOC: CCTX 08:45
PROVIDERS: PCP Physician Assistant; Referring Provider Orthopaedic Surgery Adult Reconstructive Orthopaedic Surgery; Visit Provider Orthopaedic Surgery Adult Reconstructive Orthopaedic Surgery
DX: Z87.81 Personal history of (healed) traumatic fracture (principal); Z32.00 Encounter for pregnancy test, result unknown
CPT/HCPCS: 73700; 81025

== ENCOUNTER 2025-02-04 10:46 | Outpatient (AMB) | payer MEDICAID, SELFPAY ==
--- NOTE | 2025-02-04 11:01 | PD.ORTHCLVIS ---
Vital signs 02/04/25 11:02 Height 1.55 m Height Method Stated Weight 63.503 kg Weight Measurement Method Standing Scale BMI 26.4 BP 137/87 H Blood Pressure Source Automatic Cuff Blood Pressure Location Left Upper Arm Position Sitting Respiration 18 Pulse 77 Pulse Source Monitor Temp 96.8 F Temp Source Temporal Artery Scan Pulse Oximetry (%) 97 Oxygen Delivery Method Room Air Med/Allergies Allergies & Medications Allergies No Known Allergies Allergy (Verified 02/04/25 11:02) Medication Reconciliation acetaminophen 500 mg tablet 1,000 mg PO TID pain 11/01/23 [History Confirmed 02/04/25] acetaminophen 500 mg tablet (Acetaminophen Extra Strength) 1,000 mg (2 x 500 mg) PO Q6H PRN pain #90 tabs 06/04/24 [Rx Confirmed 02/04/25] aspirin 81 mg tablet,delayed release 81 mg PO BID #60 tabs 06/04/24 [Rx Confirmed 02/04/25] cyclobenzaprine 5 mg tablet 5 mg PO TID PRN muscle spasm #60 tabs 06/04/24 [Rx Confirmed 02/04/25] cyclobenzaprine 5 mg tablet 5 mg PO TID PRN muscle spasm #60 tabs 06/04/24 [Rx Confirmed 02/04/25] doxycycline hyclate 100 mg tablet 100 mg PO BID #14 tabs 06/04/24 [Rx Confirmed 02/04/25] gabapentin 300 mg capsule 300 mg PO .qhs #30 caps 06/04/24 [Rx Confirmed 02/04/25] oxycodone 5 mg tablet 5 mg PO Q6H PRN pain #28 tabs 06/04/24 [Rx Confirmed 02/04/25] sennosides 8.6 mg-docusate sodium 50 mg tablet (Senna-S) 1 tab-cap PO QDAY #30 tabs 06/04/24 [Rx Confirmed 02/04/25] Exam Exam Patient is in no acute distress and is cooperative with the examination today. Patient has a normal mood and affect. Breathing is nonlabored. In no respiratory distress. Bilateral extremities were evaluated and demonstrates sensation intact to light touch. Palpable pedal pulses are present. No significant edema is present. Left knee incision is clean dry intact. There is no drainage. We removed the remaining sutures. Range of motion is 0 to 100 degrees. Knee feels stable to varus and valgus stress as well as AP translation. The knee is tender to palpation laterally over the femoral condyle X-rays of the left knee from 01/07/2025 demonstrates a total knee replacement with a cemented tibial component and a femoral component with a TS poly. There is a line in the femoral condyle which is nondisplaced and may be consistent with a condyle fracture Assessment and Plan Problem List (1) Rheumatoid arthritis involving both knees: Status: Acute (2) Status post total left knee replacement: Status: Acute Plan: Patient is doing well after complex primary total knee replacement for rheumatoid arthritis until a injury 4 weeks ago. She is doing well now and the CT scan demonstrated no fracture of the condyle. She is very happy. We will see her in approximately 6 months Office Procedures GNS Level of Care Nursing/Assessment Patient Status: Established Patient Nursing Assessment/Reassesment: Medication Reconciliation, Update PMH in EMR and Vital Signs Coordination of Care: Complex Care and Chronic Disease 1-5, Education Complex Pt/Fam, Consent,records obtained, informed consent, Results/Orders obtained and Staff clarify orders Special Needs: Language special needs Established Patient Charge Established Patient Point Assignment: 95 Established Patient Point Charge: EP Level 3 (80-115) MA Intake Visit Data Collection New Patient or Established: Established Patient (seen at [facility] within 3 years) Reason for Visit:: KNEE FOLLOW UP Seen by Clinical Staff ONLY (RN/MA): No Verbal consent obtained for Telemed visit?: No 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 PCP or OBGYN visit in last 3 months: Yes Hx Now: No Do You Feel Safe at Home: Yes Authorities Contacted: N/A Questionairres Past Medical History Past Medical History Have you ever been diagnosed with any of the following: Neurological Problems Cerebrovascular Accident (CVA): Yes (5 YEARS AGO) Transient Ischemic Attacks (TIA): Yes (5 yrs ago) Seizures: No Cardiology Problems Congestive Heart Failure: No Respiratory Problems Chronic Obstructive Pulmonary Disease (COPD): No Asthma: No Tuberculosis: Yes (POSITIVE TB TEST CHILD- TREATMENT COMPLETED) Smoking: No Smoking Cessation Counseling: No Smoking Exposure: No Stomache/Intestinal Problems Hepatitis: No Genital/Urinary Problems Renal Disease: No Reproductive Problems Previous Pregnancies: Yes (X4, 3 children) Musculoskeletal Problems Rheumatoid Arthritis: Yes (TAKES PREDNISONE, last dose 05/28/24, gets IV infusions) Endocrine Problems Diabetes Mellitus Type 1: No Diabetes Mellitus Type 2: Yes (CONTROLLED WITH DIET. NO MEDS) Blood Problems Sickle Cell Disease: No Other Problems Hospitalization: Yes (TIA) Shingles: Yes Falls: No Blood Transfusions: Yes Blood Transfusion Reaction: No Anesthesia Reactions: No MRSA: No Chicken Pox: Yes Measles: Yes Cancer: No Surgical History Total Knee Replacement: Yes Subjective Visit Visit for: follow up visit and knee Immunization / Flu Flu Vaccine in the Last 12 Months: No Flu Vaccine Exclusion Criteria: No Exclusion Criteria History of Present Illness Chief complaint: POST OP RIGHT TKA An is a pleasant 44-year-old female with rheumatoid arthritis who presents for routine follow-up. She had a injury 4 weeks ago when she was stepping off transportation from approximately 4 feet and felt like there was sudden increase in pain when planting. The pain is on the lateral aspect of her knee. She is here fot ct results which demonstrates no fracture of the condyle Personal History Occupation: UNEMPLOYED Red flag PMH: other (specify) BMI Counceling provided: No Pain Pain level (0-10): 0 Pain duration: ON AND OFF Pain quality: aching and other (specify) Pain timing: increases with activity Associated signs & symptoms: none Ambulatory data Ambulatory device: none Treatments Number of previous injections: 0 Improvement with previous injections: No Number of Physical Therapy sessions: 0 Improvement with PT: No Improvement with NSAIDS: no Review of Systems Review of Systems: All systems negative unless otherwise noted in HPI.
[2025-02-04 11:02] VITALS: BP 137/87; PULSE 77; RESP 18; TEMP 36; O2SAT 97; BMI 26.4
== END 2025-02-04 11:09 | disposition home or self-care (01) ==
LOC: HODSRG 10:46
PROVIDERS: PCP Physician Assistant; Referring Provider Physician Assistant; Supervising Provider Orthopaedic Surgery Adult Reconstructive Orthopaedic Surgery; Visit Provider Orthopaedic Surgery Adult Reconstructive Orthopaedic Surgery
DX: Z96.652 Presence of left artificial knee joint (principal); M06.9 Rheumatoid arthritis, unspecified
CPT/HCPCS: 99213; G0463